=== PATIENT | male | born 1940 | race Caucasian/White ===

== ENCOUNTER 2024-07-24 04:47 | Emergency (ER) | payer MEDICARE, SELFPAY ==
[2024-07-24] VITALS (13 sets, daily range): BP systolic 104–225; BP diastolic 57–107; PULSE 69–72; RESP 14–16; TEMP 36.8; O2SAT 97–98; BMI 21.1; BMI 26.6
--- NOTE | 2024-07-24 05:00 | CT_ITS ---
PROCEDURE INFORMATION: Exam: CT Head Without Contrast Exam date and time: 07/24/2024 5:02 AM Age: 83 years old Clinical indication: Stroke-like symptoms; Speech disturbance; Lt upper extremity weakness; Additional info: Possible stroke TECHNIQUE: Imaging protocol: Computed tomography of the head without contrast. Radiation optimization: All CT scans at this facility use at least one of these dose optimization techniques: automated exposure control; mA and/or kV adjustment per patient size (includes targeted exams where dose is matched to clinical indication); or iterative reconstruction. Other technique: STROKE PROTOCOL was implemented. COMPARISON: CT HEAD/BRAIN WO CON 07/24/2024 5:02 AM FINDINGS: Brain: The brain demonstrates diffuse volume loss. There is white matter hypodensity most consistent with chronic small vessel ischemic change. There is encephalomalacia in the right occipital lobe consistent with a chronic infarction. Cerebral ventricles: The ventricles and CSF spaces are proportionately enlarged. There is no midline shift. Paranasal sinuses: Visualized sinuses are unremarkable. No fluid levels. Mastoid air cells: Visualized mastoid air cells are well aerated. Bones: No acute fracture. Soft tissues: Unremarkable. IMPRESSION: 1. Atrophy and the sequela of chronic small vessel ischemia. 2. 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 3. No acute intracranial abnormality is demonstrated. ASSESSMENT: ASPECTS ([place] Stroke Program Early CT Score) is 10.
--- NOTE | 2024-07-24 05:00 | CT_ITS ---
PROCEDURE INFORMATION: Exam: CTA Head With Contrast, Arteriography Exam date and time: 07/24/2024 5:04 AM Age: 83 years old Clinical indication: Stroke-like symptoms; Speech disturbance; Lt upper extremity weakness; Additional info: Possible stroke TECHNIQUE: Imaging protocol: Computed tomographic angiography of the head with contrast. Exam focused on the arteries. 3D rendering (Not supervised by radiologist): MIP and/or 3D reconstructed images were created by the technologist. Radiation optimization: All CT scans at this facility use at least one of these dose optimization techniques: automated exposure control; mA and/or kV adjustment per patient size (includes targeted exams where dose is matched to clinical indication); or iterative reconstruction. Contrast material: ISOVUE; Contrast volume: 80 ml; Contrast route: INTRAVENOUS (IV); COMPARISON: CT HEAD/BRAIN WO CON 07/24/2024 5:02 AM FINDINGS: ANTERIOR CIRCULATION: Right internal carotid artery: There is atherosclerotic disease involving the right cavernous ICA without narrowing. Right middle cerebral artery: No occlusion or significant stenosis. No aneurysm. Right anterior cerebral artery: No occlusion or significant stenosis. No aneurysm. Left internal carotid artery: There is decrease in size and enhancement of the left petrous and cavernous ICA. Left middle cerebral artery: No occlusion or significant stenosis. No aneurysm. Left anterior cerebral artery: No occlusion or significant stenosis. No aneurysm. POSTERIOR CIRCULATION: Right vertebral artery: There is some atherosclerotic disease involving the intradural segment of the right vertebral artery with mild narrowing. Left vertebral artery: There is atherosclerotic the intradural segment of the left vertebral artery with mild narrowing. Basilar artery: No occlusion or significant stenosis. No aneurysm. Right posterior cerebral artery: No occlusion or significant stenosis. No aneurysm. Left posterior cerebral artery: No occlusion or significant stenosis. No aneurysm. Brain: No abnormal enhancement. Cerebral ventricles: The ventricles and CSF spaces are prominent related generalized volume loss. Bones/joints: No acute fracture. Soft tissues: Unremarkable. IMPRESSION: 1. The left petrous and cavernous ICA is smaller than right and demonstrates decreased enhancement consistent with a severe left cervical ICA stenosis. 2. An emergent neurovascular consultation is recommended.
--- NOTE | 2024-07-24 05:00 | CT_ITS ---
PROCEDURE INFORMATION: Exam: CTA Neck With Contrast Exam date and time: 07/24/2024 5:04 AM Age: 83 years old Clinical indication: Stroke-like symptoms; Speech disturbance; Lt upper extremity weakness; Additional info: Possible stroke TECHNIQUE: Imaging protocol: Computed tomographic angiography of the neck with contrast. Exam focused on the cervical segments of the vasculature. 3D rendering (Not supervised by radiologist): MIP and/or 3D reconstructed images were created by the technologist. Radiation optimization: All CT scans at this facility use at least one of these dose optimization techniques: automated exposure control; mA and/or kV adjustment per patient size (includes targeted exams where dose is matched to clinical indication); or iterative reconstruction. Contrast material: ISOVUE; Contrast volume: 80 ml; Contrast route: INTRAVENOUS (IV); COMPARISON: CT HEAD/BRAIN WO CON 07/24/2024 5:02 AM FINDINGS: Right common carotid artery: No stenosis. No dissection or occlusion. Right internal carotid artery: There is heavy atherosclerotic disease at the origin of the right ICA without narrowing. Right external carotid artery: No occlusion or stenosis of the origin. Left common carotid artery: No stenosis. No dissection or occlusion. Left internal carotid artery: There is heavy atherosclerotic disease at the origin of the left ICA with a severe stenosis somewhat limited assessment due to the calcified plaque. The left cervical ICA is smaller than the right and demonstrates decreased vascular flow within consistent with the flow limiting narrowing. Left external carotid artery: No occlusion or stenosis of the origin. Right vertebral artery: No stenosis. No dissection or occlusion. Left vertebral artery: No stenosis. No dissection or occlusion. Thyroid: There is a 1.3 cm calcified right thyroid nodule. Soft tissues: Normal. No significant soft tissue swelling. Bones/joints: There are degenerative changes throughout the cervical spine. Lungs: There is mild centrilobular emphysematous change in the lung apices. There is a 4 mm noncalcified left upper lobe pulmonary nodule (series 2, image 19). IMPRESSION: 1. Severe stenosis origin left ICA. Reduced flow in the cervical segment. 2. An emergent neurovascular consultation is recommended. 3. 4 mm noncalcified left apical pulmonary nodule. As per Fleischner Society guidelines for follow-up and management of pulmonary nodules: For patients at low risk (minimal or absent history of smoking and of other known risk factors), no follow-up needed. For patient at high risk (history of smoking or of other known risk factors), recommend follow-up chest CT at 12 months; if unchanged, no further follow-up needed. COMMENTS: Consistent with the [employer] [employer]'s Incidental Findings Committee white paper (J Am Charles Radiol 2015): In patients aged 35 years and older with an incidental thyroid nodule equal to or greater than 1.[address], MRI or extrathyroidal US, further evaluation with dedicated thyroid US is recommended for patients with normal life expectancy and without comorbidities. For smaller nodules without suspicious features, no further evaluation or follow up is recommended. REFERENCES: NASCET CRITERIA. The degree of stenosis in the cervical segment of the internal carotid artery is based on NASCET criteria. Normal is no stenosis. Mild is less than 50% stenosis. Moderate is 50-69% stenosis. Severe is 70% to 99% stenosis. Total occlusion is no detectable patent lumen.
[2024-07-24 05:07] LABS: Basophils # 0.1 K/mm3 (0-0.2); Basophils % 0.8 % (0.1-2.0); Eosinophils # 0.1 K/mm3 (0.0-0.4); Hematocrit 49.7 % (42.0-52.0); Hemoglobin 17.6 g/dL (14.1-18.0); Lymphocytes # 2.1 K/mm3 (0.7-4.5); Lymphocytes % 22.3 % (10-50); Mean Corpuscular HGB Conc 35.4 g/dL (31.8-35.4); Mean Corpuscular Hemoglobin 30.4 pg (27.0-31.2); Mean Corpuscular Volume 85.8 fl (80-94); Mean Platelet Volume 9.8 fl (7.4-10.4); Monocytes # 0.6 K/mm3 (0.1-1.0); Monocytes % 6.6 % (1.7-9.3); Neutrophils # 6.4 K/mm3 (1.8-7.8); Neutrophils % 69.1 % (37.0-80.0); Platelet Count 278 K/mm3 (142-424); Red Blood Count 5.79 M/mm3 (4.60-6.20); Red Cell Distribution Width 12.2 % (11.5-17.5); White Blood Count 9.2 K/mm3 (4.8-10.8)
[2024-07-24] MEDS: IOPAMIDOL-370 (76%);100ML BOTTLE 80 ML IV (05:13)
[2024-07-24] MEDS: 0.9 % SODIUM CHLORIDE 50 ML VIAL IV (05:13)
[2024-07-24] MEDS: SODIUM CHLORIDE 0.9% 10ML SYR (RAD ONLY) 10 ML IV (05:13)
[2024-07-24] MEDS: LABETALOL 20MG/4ML SYRINGE 10 MG IV (05:15)
[2024-07-24 05:16] LABS: Alanine Aminotransferase 58 U/L (12-78); Albumin Level 4.3 g/dl (3.5-5.0); Albumin/Globulin Ratio 2.2 (1.1-1.8); Alkaline Phosphatase 66 U/L (38-126); Anion Gap 10.9 mEq/L (5-15); Aspartate Amino Transferase 47 U/L (17-59); Bilirubin,Total 3.1 mg/dl (0.2-1.3); Blood Urea Nitrogen 10 mg/dl (9-20); Calcium 9.3 mg/dl (8.4-10.2); Carbon Dioxide 32 mmol/L (22.0-30.0); Chloride 95 mmol/L (98-107); Chol/HDL Ratio 2.6 (1-3.5); Cholesterol 149 mg/dl (140-200); Creatinine Clearance Estimated 58 mL/min (50-200); Estimated Glomerular Filt Rate 93 ml/min (>60); GFR (African American) 112 ML/MIN (>60); Glucose 167 mg/dl (74-100); HDL Cholesterol 57 mg/dl (40-60); Sodium 135 mmol/L (136-145); Total Protein,Serum 6.3 g/dl (6.3-8.2); Triglycerides 138 mg/dl (30-150); VLDL Cholesterol 28 mg/dL (0-40)
--- NOTE | 2024-07-24 05:16 | ECG_ITS ---
APPROVED REPORT Exam: Resting ECG HR:55 bpm ECG Measurements Heart Rate 55 AXES QRSd 97 QRS 51 QT 365 T 60 QTc 354 Conclusion ATRIAL FIBRILLATION WITH SLOW VENTRICULAR RESPONSE WITH ABERRANT CONDUCTION OR VENTRICULAR PREMATURE COMPLEXES NONSPECIFIC T-WAVE ABNORMALITY ABNORMAL RHYTHM ECG No STEMI Electronically signed by : KYLIE HONEYCUTT, 07/25/2024 06:24:57
[2024-07-24 05:17] LABS: Activated Partial Thrombo Time 26.6 seconds (22.8-30.6); Ethyl Alcohol < 10 mg/dl (0-10); INR 1.19 (0.9-1.1); Prothrombin Time 13.1 seconds (10.1-12.5)
[2024-07-24 05:18] LABS: Potassium 2.9 mmoL/L (3.5-5.1)
--- NOTE | 2024-07-24 05:21 | XR_ITS ---
PROCEDURE INFORMATION: Exam: XR Pelvis Exam date and time: 07/24/2024 5:24 AM Age: 83 years old Clinical indication: Injury or trauma; Fall TECHNIQUE: Imaging protocol: Radiologic exam of the pelvis. Views: 1 or 2 view. COMPARISON: No relevant prior studies available. FINDINGS: Bones/joints: There is moderate loss of articular cartilage in the hips bilaterally. There is no fracture demonstrated, contrast in the bladder obscures the sacrum. Soft tissues: Unremarkable. Organs: There is contrast seen in the right ureter and bladder consistent with the recent IV injection. IMPRESSION: No acute pelvic fracture demonstrated.
--- NOTE | 2024-07-24 05:21 | XR_ITS ---
PROCEDURE INFORMATION: Exam: XR Chest Exam date and time: 07/24/2024 5:24 AM Age: 83 years old Clinical indication: Injury or trauma; Fall TECHNIQUE: Imaging protocol: Radiologic exam of the chest. Views: 1 view. COMPARISON: CT ANGIO NECK 07/24/2024 5:04 AM FINDINGS: Lungs: No consolidation. Pleural spaces: No pleural effusion. No pneumothorax. Heart/Mediastinum: There is a partially calcified left AP window lymph node. Vasculature: The aorta is slightly tortuous. Bones/joints: There are degenerative changes of the spine and shoulders. IMPRESSION: 1. No evidence of active pulmonary disease. 2. A followup PA and lateral radiograph is recommended when the patient is clinically able.
--- NOTE | 2024-07-24 05:23 | ED_ITS ---
Discharge Plan Disposition Patient Disposition: Xfer Other Prescriptions Prescriptions: No Action glyburide 2.5 mg tablet 2.5 mg PO DAILY memantine 10 mg tablet 10 mg PO BID rosuvastatin 10 mg tablet 10 mg PO DAILY donepezil 23 mg Tablet 23 mg PO DAILY Clinical Impressions Clinical Impression: Acute ischemic stroke Dementia Qualifiers: Dementia type: unspecified type Dementia severity: unspecified severity Stand Alone Forms Stand Alone Forms: Transfer Record - ED Print Language Print Language: Cypriot Discharge ED Provider: Eleazar Simons Adult HPI General Chief complaint: Neuro Symptoms/Deficit Stated complaint: Stroke Time Seen by Provider: 07/24/24 04:50 Mode of Arrival: EMS Source of Information: Spouse and EMS Description of Symptoms (Recalled from ER Triage Doc. by RN): Pt presents as a stroke alert, made after recieving EMS call. EMS reports pt last known normal approx 2-3 hours ago noticed per when patient attempted to get up and go to restroom with difficulty walking and speaking. Pt did suffer GLF with no blood thinner use. Pt taken directly to CT scan upon arrival to ED History of Present Illness HPI narrative: 83-year-old male with history of severe dementia, kop-heeyuwk-pnkvugajt diabetes, hyperlipidemia presents for strokelike symptoms. Last known normal 2:20 AM. At approximately 330 patient was noted by his to be having difficulty using his left hand to open the door and then he fell over. She reports that his speech is slurred and that he has some facial asymmetry. He has significant baseline dementia and does not recognize the people around him. He is normally able to get up walk around eat and go to the bathroom by himself. Yesterday he did not want to get out of bed but he was otherwise normal. No history of stroke, no blood thinner use, no recent surgery. Related Data Home Medications ?Medication ?Instructions ?Recorded ?Confirmed donepezil 23 mg tablet 23 mg PO DAILY 07/24/24 07/24/24 glyburide 2.5 mg tablet 2.5 mg PO DAILY 07/24/24 07/24/24 memantine 10 mg tablet 10 mg PO BID 07/24/24 07/24/24 rosuvastatin 10 mg tablet 10 mg PO DAILY 07/24/24 07/24/24 Allergies Allergy/AdvReac Type Severity Reaction Status Date / Time No Known Allergies Allergy Verified 07/24/24 04:58 [facility] Disclaimer: The information contained in this section may have been updated after the patient was seen, as this information can be updated by other users. Social History Smoking Status: Former smoker alcohol intake: never current occupational status: retired Travel in the last 8 weeks: None ROS Obtained: Yes All systems reviewed & no additional complaints except as documented Physical Exam General General appearance: alert and in no apparent distress Comment: Thin appearing Head Head exam: atraumatic and normocephalic Eye Eye exam: Present normal appearance, PERRL and EOMI ENT ENT exam: Present normal oropharynx and normal external ear exam Neck Neck exam: Present normal inspection and full ROM Chest Chest inspection: Present normal inspection and symmetric chest wall rise; Absent tenderness Respiratory Respiratory exam: Present normal lung sounds bilaterally; Absent respiratory distress Cardiovascular Cardiovascular exam: Present normal rhythm and bradycardia Abdominal Exam Abdominal exam: Present soft; Absent distention, tenderness or guarding Extremities Exam Extremities exam: Present normal inspection; Absent edema or joint swelling Back Exam Back exam: Present normal inspection; Absent tenderness Neurological Exam Neurological exam: Present alert and motor sensory deficit (NIH 11, left facial droop, left arm weakness, left arm ataxia, left leg weakness); Absent oriented X3 (Oriented only to person, this is normal for patient) Psychiatric Psychiatric exam: Present normal affect and normal mood Skin Skin exam: Present warm, dry and normal color Lymphatic Lymphatic Findings: no adenopathy Medical Decision Making Medical Records Medical records reviewed: Yes I reviewed the patient's medical records. Screening: Per USPSTF and CDC recommendations, given the prevalence of disease in our region, it is our hospital?s policy to screen for HIV and viral Hepatitis for all patients aged 18 and over and those with ongoing risk factors. Garfield Inquiry Pt receiving controlled substance: No Garfield was queried for this patient: No Vital Signs: 07/24/24 05:02 07/24/24 05:16 07/24/24 05:18 Pulse Rate [Radial] 69 Respiratory Rate 14 Blood Pressure 225/106 H 184/92 H Blood Pressure [Left Arm] 223/107 H Blood Pressure Mean Blood Pressure Mean [Left Arm] 145 Blood Pressure Position [Left Arm] Supine 02 Sat by Pulse Oximetry 97 Oxygen Delivery Method Room Air 07/24/24 05:30 07/24/24 05:45 Pulse Rate [Radial] Respiratory Rate Blood Pressure 207/101 H 215/105 H Blood Pressure [Left Arm] Blood Pressure Mean 115 121 Blood Pressure Mean [Left Arm] Blood Pressure Position [Left Arm] 02 Sat by Pulse Oximetry Oxygen Delivery Method Lab Data Lab results reviewed: Yes I reviewed the patient's lab results. Lab Results 07/24/24 04:57: WBC 9.2, RBC 5.79, Hgb 17.6, Hct 49.7, MCV 85.8, MCH 30.4, MCHC 35.4, RDW 12.2, Plt Count 278, MPV 9.8, Neut % (Auto) 69.1, Lymph % (Auto) 22.3, Banner % (Auto) 6.6, Eos % (Auto) 1.0, Baso % (Auto) 0.8, Neut # (Auto) 6.4, Lymph # (Auto) 2.1, Banner # (Auto) 0.6, Eos # (Auto) 0.1, Baso # (Auto) 0.1, PT 13.1 H, INR 1.19 H, APTT 26.6, Sodium 135 L, Potassium 2.9 L*, Chloride 95 L, Carbon Dioxide 32 H, Anion Gap 10.9, BUN 10, Creatinine 0.80, Estimated Creat Clear 58, Estimated GFR 93, Est GFR ( Amer) 112, Glucose 167 H, Calcium 9.3, Total Bilirubin 3.1 H, AST 47, ALT 58, Alkaline Phosphatase 66, Troponin I 0.02, Total Protein 6.3, Albumin 4.3, Globulin 2.0, Albumin/Globulin Ratio 2.2 H, Triglycerides 138, Cholesterol 149, LDL Cholesterol Direct 65.26 L, VLDL Cholesterol 28, HDL Cholesterol 57, Cholesterol/HDL Ratio 2.6, Plasma/Serum Alcohol < 10 07/24/24 05:46: Urine Color Yellow, Urine Appearance Clear, Urine pH 7.5, Ur Specific [place] 1.015, Urine Protein Negative, Urine Glucose (UA) Negative, Urine Ketones Trace, Urine Blood Trace-i, Urine Nitrate Negative, Urine Bilirubin Negative, Urine Urobilinogen 0.2, Ur Leukocyte Esterase Negative, Urine RBC None, Urine WBC None, Ur Squamous Epith Cells Occasional, Urine Opiates Screen Negative, Urine Methadone Screen Negative, Ur Barbituates Screen Negative, Ur Phencyclidine Scrn Negative, Ur Amphetamines Screen Negative, U Benzodiazepines Scrn Negative, Urine Cocaine Screen Negative, U Marijuana (THC) Screen Negative 07/24/24 04:57 07/24/24 04:57 Orders (Tests/Meds): ED MEDICATIONS Generic Name Dose Route Start Last Admin Trade Name Hawa PRN Reason Stop Dose Admin Sodium Chloride 10 ml 07/24/24 05:00 Sodium Chloride 0.9% 10ml Flush Syringe IV 08/23/24 04:59 NEEDED PRN Maintain IV Site Discontinued Medications Generic Name Dose Route Start Last Admin Trade Name Hawa PRN Reason Stop Dose Admin Hydralazine HCl 10 mg 07/24/24 05:57 07/24/24 06:01 Hydralazine 20mg/Ml Vial IV 07/24/24 05:58 10 mg ONCE ONE Administration Iopamidol 80 ml 07/24/24 05:12 07/24/24 05:13 Iopamidol-370 (76%);100ml Bottle IV 07/24/24 05:13 80 ml ONCE ONE Administration Labetalol HCl 10 mg 07/24/24 05:11 07/24/24 05:15 Labetalol 20mg/4ml Syringe IV 07/24/24 05:12 10 mg ONCE ONE Administration Sodium Chloride 50 ml 07/24/24 05:12 07/24/24 05:13 0.9 % Sodium Chloride 50 Ml Vial IV 07/24/24 05:13 50 ml ONCE ONE Administration Sodium Chloride 10 ml 07/24/24 05:12 07/24/24 05:13 Sodium Chloride 0.9% 10ml Syr (Rad Only) IV 07/24/24 05:13 10 ml ONCE ONE Administration Tenecteplase 17.5 mg 07/24/24 05:24 07/24/24 05:37 Tenecteplase 50mg Vial IV 07/24/24 05:25 17.5 mg ONCE ONE Administration ORDERS Category Date Time Status CT angio head Stat Cat Scan 07/24/24 05:[address] angio neck Stat Cat Scan 07/24/24 05:[address] head/brain wo con Stat Cat Scan 07/24/24 05:00 Completed CXR --portable [XR chest portable] Stat Exams 07/24/24 05:21 Completed Pelvis XR 1-2 views [XR pelvis 1-2V] Stat Exams 07/24/24 05:21 Completed Activated Partial Thrombo Time Stat Lab 07/24/24 04:57 Completed Complete Blood Count Auto Diff Stat Lab 07/24/24 04:57 Completed Comprehensive Metabolic Panel Stat Lab 07/24/24 04:57 Completed Drug Screen,Urine Stat Lab 07/24/24 05:46 Completed Ethyl Alcohol Stat Lab 07/24/24 04:57 Completed HIV Combo Routine Lab 07/24/24 04:57 Received Lipid Panel Stat Lab 07/24/24 04:57 Completed Prothrombin Time INR Stat Lab 07/24/24 04:57 Completed Troponin I Q3H Lab 07/24/24 08:00 Ordered Troponin I Q3H Lab 07/24/24 11:00 Ordered Troponin I Stat Lab 07/24/24 04:57 Completed Urinalysis and Microscopic Stat Lab 07/24/24 05:46 Completed ECG Request Stat Y 07/24/24 05:00 Ordered Medical Decision Narrative: 83-year-old male with history of significant dementia, jum-dwefdtr-nsntnjgnv diabetes, hyperlipidemia presents for acute strokelike symptoms with left-sided facial droop, slurred speech, left upper extremity weakness and ataxia, left leg weakness. Last known normal 2:20 AM, sustained a fall at approximately 3:30 AM. History was obtained via interactive discussion with patient, EMS, . On arrival, patient is afebrile, hypertensive, fingerstick normal, NIH of 11 for slurred speech, left facial droop, left upper and lower extremity weakness, left arm ataxia Differential includes but is not limited to acute ischemic stroke, hemorrhagic stroke, large vessel occlusion, seizure, syncope, electrolyte derangement, diabetic emergency. Workup initiated including emergent CT head, CTA head and neck, broad-spectrum labs, radiograph of the chest and pelvis after fall. On my independent interpretation, no evidence of intracranial bleeding on CT head Noncon. There is severe left ICA stenosis noted on CTA, no obvious LVO.. I discussed the case with the patient's . Discussed the risk and benefits of TNK. wants to proceed with TNK and transfer to stroke center. Patient was given 10 of IV labetalol to bring blood pressure less than 185/110. After that, TNK was given. Laboratory workup independently interpreted by me and significant for mild hypokalemia 2.9, undetectable initial troponin, no significant leukocytosis or anemia. Imaging independently interpreted by me and significant for no pneumothorax or obvious pelvic fracture on radiographs. See radiology read for full review of final results. EKG independently interpreted by me and significant for sinus bradycardia with rate of 59, no obvious ischemic changes, no evidence of arrhythmia. Given patient history, exam and workup, patient's presentation most likely represents acute ischemic stroke. Interactive discussion was had with the [facility] stroke navigator who accepted the patient in transfer. We will fly the patient out to [facility]. Procedures Risk/Benefits of Procedure(s) Were Explained: Yes Critical Care Critical Care Time Critical Care Time: Yes (neuro) Attestation: On , the high probability of a clinically significant, sudden or life threatening deterioration of the following system(s) required my full and direct attention, intervention and personal management. The time I documented below is in addition to time spent performing reported procedures but includes the following listed in this critical care notation. Total Time Total Critical Care Time: 70
--- NOTE | 2024-07-24 05:26 | PC.NURSE ---
0450Pt arrived to the ed via EMS Speech slurred Pt to CT scan IV established by EMS in right AC BS 186 L arm weakness noted Last Known well at 0220 BP 211/91 97% Sao2 on RA P-63 0500 BP 204/117 Sao2 97% P-67 0503 BP-204/114 97% on RA P-63 %15 Pt given 10mg Labatool IV push BP- 225/106 P-65 R- 16 T-98.2 Sao2 98 % on RA 0518 BP 184/92 HR 54
[2024-07-24 05:27] LABS: Direct LDL Cholesterol 65.26 mg/dL (100-129)
[2024-07-24 05:30] LABS: Troponin I 0.02 ng/ml (0.00-0.034)
--- NOTE | 2024-07-24 05:33 | PC.NURSE ---
Spoke with [facility] in regards to the stroke navigator, Dr. Simons speaking with the stroke navigator at this time
[2024-07-24] MEDS: TENECTEPLASE 50MG VIAL 17.5 MG IV (05:37)
--- NOTE | 2024-07-24 05:44 | ECG_ITS ---
APPROVED REPORT Exam: Resting ECG HR:59 bpm ECG Measurements Heart Rate 59 AXES IN 189 P -77 QRSd 94 QRS 46 QT 382 T 83 QTc 381 Conclusion ECTOPIC ATRIAL BRADYCARDIA NONSPECIFIC T-WAVE ABNORMALITY ABNORMAL RHYTHM ECG Electronically signed by : KYLIE HONEYCUTT, 07/25/2024 06:25:35
--- NOTE | 2024-07-24 05:45 | PC.NURSE ---
18fr chapa catheter placed an anchored prior to TNK
--- NOTE | 2024-07-24 05:47 | PC.NURSE ---
[facility] called and accepted the transfer. 38 minute ETA. House notified at this time
--- NOTE | 2024-07-24 05:48 | PC.NURSE ---
states patient has dementia at baseline andrade [facility] claudette
[2024-07-24 05:52] LABS: Microscopic, Urine URINE MICROSCOPIC (MICROSCOPIC)
[2024-07-24 05:53] LABS: Appearance,Urine CLEAR (Clear); Bilirubin,Urine Negative (Negative); Blood, Urine TRACE-I (Negative); Color,Urine YELLOW (Yellow); Glucose,Urine (UA) Negative (Negative); Ketones,Urine TRACE (Negative); Leukocyte Esterase,Urine Negative (Negative); Nitrate,Urine Negative (Negative); PH,Urine 7.5 (5.0-8.5); Protein,Urine Negative (Negative); Specific Gravity, Urine 1.015 (1.005-1.030); Urobilinogen,Urine 0.2 EU/dl (0.2)
--- NOTE | 2024-07-24 05:57 | PC.NURSE ---
Pt awaiting transport ETA [facility] 20 min
[2024-07-24] MEDS: HYDRALAZINE 20MG/ML VIAL 10 MG IV (06:01)
[2024-07-24 06:21] LABS: Amphetamine/Metha Screen,Urine Negative ng/ml (<1000)
[2024-07-24 06:22] LABS: Barbiturates Screen,Urine Negative ng/ml (<200); Benzodiazepines Screen,Urine Negative ng/ml (<200)
[2024-07-24 06:23] LABS: Cannabinoid Screen,Urine Negative ng/ml (<50)
[2024-07-24 06:24] LABS: Cocaine Screen,Urine Negative ng/ml (<300); Methadone Screen,Urine Negative ng/ml (<300)
[2024-07-24 06:25] LABS: Opiate Screen,Urine Negative ng/ml (<300)
[2024-07-24 06:26] LABS: Phencyclidine Screen,Urine Negative ng/ml (<25); Squamous Epithelial Cell,Urine Occasional #/hpf (0-5)
--- NOTE | 2024-07-24 06:30 | PC.NURSE ---
[facility] called back with the report number at this time. bed assignment will be given after report has been called.
--- NOTE | 2024-07-24 06:33 | PC.NURSE ---
[facility] called and stated it would be 10 mins.
--- NOTE | 2024-07-24 06:39 | PC.NURSE ---
Report called to [facility] at [facility] aware of low BP Fluid bolus ordered and begun
--- NOTE | 2024-07-24 07:10 | PC.NURSE ---
Pt transported via air to [facility].
[2024-07-24 12:13] LABS: HIV Combo NEGATIVE (Negative)
== END 2024-07-24 07:18 | disposition other institution (70) ==
PROVIDERS: Emergency Provider Emergency Medicine; PCP Emergency Medicine
DX: I63.9 Cerebral infarction, unspecified (principal)
CPT/HCPCS: 51702; 70450; 70496; 70498; 71045; 72170; 80053; 80061; 80307; 80320; 81001; 84484; 85025; 85610; 85730; 87389; 93005; 96374; 96375; 99285; J0360; J1920; J3101; Q9967

== ENCOUNTER 2024-10-08 03:44 | Emergency (ER) | payer MEDICARE, SELFPAY ==
[2024-10-08] VITALS (7 sets, daily range): BP systolic 153–180; BP diastolic 70–106; PULSE 60–89; RESP 16–18; TEMP 36.6; O2SAT 92–100; BMI 22.8
--- NOTE | 2024-10-08 03:39 | ECG_ITS ---
APPROVED REPORT Exam: Resting ECG HR:67 bpm ECG Measurements Heart Rate 67 AXES QRSd 114 QRS 55 QT 342 T 139 QTc 358 Conclusion ATRIAL FIBRILLATION MODERATE INTRAVENTRICULAR CONDUCTION DELAY [110+ ms QRS DURATION] NONSPECIFIC ST & T-WAVE ABNORMALITY No STEMI Electronically signed by : KYLIE HONEYCUTT, 10/09/2024 03:53:15
--- NOTE | 2024-10-08 03:43 | XR_ITS ---
PROCEDURE INFORMATION: Exam: XR Chest Exam date and time: 10/08/2024 4:34 AM Age: 84 years old Clinical indication: Injury or trauma; Fall; Additional info: Fall no complaints TECHNIQUE: Imaging protocol: Radiologic exam of the chest. Views: 1 view. COMPARISON: CR XR CHEST PORTABLE 07/24/2024 5:24 AM FINDINGS: Lungs: Calcified hilar lymph nodes. Pleural spaces: Unremarkable. No pleural effusion. No pneumothorax. Heart/Mediastinum: Unremarkable. No cardiomegaly. Vasculature: Robust atherosclerotic disease. Bones/joints: Demineralized bones. Diffuse degenerative change of the visualized osseous structures. IMPRESSION: No acute findings.
--- NOTE | 2024-10-08 03:43 | CT_ITS ---
PROCEDURE INFORMATION: Exam: CT Cervical Spine Without Contrast Exam date and time: 10/08/2024 4:50 AM Age: 84 years old Clinical indication: Injury or trauma; Additional info: Fall no c-spine pain TECHNIQUE: Imaging protocol: Computed tomography of the cervical spine without contrast. Radiation optimization: All CT scans at this facility use at least one of these dose optimization techniques: automated exposure control; mA and/or kV adjustment per patient size (includes targeted exams where dose is matched to clinical indication); or iterative reconstruction. COMPARISON: CT CERVICAL SPINE WO CON 10/08/2024 4:50 AM FINDINGS: Bones: Degenerative changes of the visualized osseous structures. Severe neural foraminal narrowing bilaterally at C4-C5, C5-C6. No significant spinal canal stenosis. Bones are demineralized. Degenerative pannus at C2. Lungs: Lung apices are normal. Thyroid: Stable right thyroid lobe calcified nodule. Soft tissues: Robust atherosclerotic disease better detailed on the same-day CTA of the neck. IMPRESSION: Degenerative changes without acute finding as highlighted above.
--- NOTE | 2024-10-08 03:43 | XR_ITS ---
PROCEDURE INFORMATION: Exam: XR Pelvis Exam date and time: 10/08/2024 4:34 AM Age: 84 years old Clinical indication: Injury or trauma; Fall; Additional info: Fall no complaints TECHNIQUE: Imaging protocol: Radiologic exam of the pelvis. Views: 1 or 2 view. COMPARISON: CR XR PELVIS 1-2V 07/24/2024 5:24 AM FINDINGS: Bones/joints: Fracture through the mid left femoral neck, superior displacement of the distal fracture component. Degenerative changes of the remainder of the visualized articulations to include the lower spine. Demineralized bones diffusely. Soft tissues: Unremarkable. Intraperitoneal space: Large round calcification is noted over the superior left midline pelvis, noted to be fat infarction on the cross-sectional evaluation. IMPRESSION: Fracture through the mid femoral neck with superior displacement of the distal fracture component.
--- NOTE | 2024-10-08 03:43 | CT_ITS ---
PROCEDURE INFORMATION: Exam: CT Head Without Contrast Exam date and time: 10/08/2024 4:47 AM Age: 84 years old Clinical indication: Stroke-like symptoms; Speech disturbance; Additional info: Fall on thinners TECHNIQUE: Imaging protocol: Computed tomography of the head without contrast. Radiation optimization: All CT scans at this facility use at least one of these dose optimization techniques: automated exposure control; mA and/or kV adjustment per patient size (includes targeted exams where dose is matched to clinical indication); or iterative reconstruction. Other technique: STROKE PROTOCOL was implemented. COMPARISON: CT ANGIO HEAD 07/24/2024 5:04 AM FINDINGS: Brain: Diffuse parenchymal atrophy. Encephalomalacia noted the medial inferior right occipital lobe. Robust intracranial calcified atherosclerotic disease. Diffuse periventricular and subcortical white matter hypoattenuation, nonspecific, however likely represents chronic microvascular disease. Cerebral ventricles: Ex vacuo dilation of the ventricles and CSF spaces. Paranasal sinuses: Visualized sinuses are unremarkable. No fluid levels. Mastoid air cells: Visualized mastoid air cells are well aerated. Bones: Unremarkable. No acute fracture. Soft tissues: Unremarkable. IMPRESSION: No acute intracranial findings. ASSESSMENT: ASPECTS (Ward Stroke Program Early CT Score) is 10.
--- NOTE | 2024-10-08 03:44 | HMH.EDGENADL ---
Discharge Plan Disposition Patient Disposition: Xfer Short-Term Hosp Condition: Fair Prescriptions Prescriptions: No Action glyburide 2.5 mg tablet 2.5 mg PO DAILY memantine 10 mg tablet 10 mg PO BID rosuvastatin 10 mg tablet 10 mg PO DAILY donepezil 23 mg Tablet 23 mg PO DAILY Referrals Follow up/Referrals: Alan Melvin MD [Primary Care Provider, Medical] - See instructions Clinical Impressions Clinical Impression: Dementia, Fall, Closed fracture of neck of left femur, Urinary tract infection Stand Alone Forms Stand Alone Forms: Transfer Record - ED Print Language Print Language: Faroese Discharge ED Provider: Anel Miguel General Adult HPI General Chief complaint: Fall Stated complaint: Fall Time Seen by Provider: 10/08/24 03:45 History of Present Illness HPI narrative: 84-year-old male presents to the ER by EMS after ground-level fall. states she heard a thud in the bedroom and went to check on him and found him next to the bed sitting on the floor. Unclear if he struck his head. No known loss of consciousness. Patient does take blood thinners reportedly. reportedly called EMS because when she first found him on the floor he would not answer her questions, however by the time EMS arrived patient was completely at his neurologic baseline. He does have a history of advanced dementia. Patient is oriented to his name and birthday but otherwise disoriented which is reportedly baseline. He will follow commands. EMS reports he was hypertensive in route and had blood glucose of 152. No medications administered. presented to bedside after initial evaluation and provided additional, different history. She is very difficult to obtain a history from herself, however. She is not very clear about what is or is not the patient's baseline. She states he usually knows his name and birthdate, but otherwise is not oriented. When I asked what was different tonight, she stated well his speech! And she was very difficult to get to clarify this further. She reports his speech is garbled though it seems fairly clear to me. She reports he is mumbling between the clear words when he is trying to explain something which is reportedly not normal for him. She also states that while his walking is different and again was difficult to get to clarify, but after further questioning states after he fell he would not walk with her or EMS. She is an extremely poor historian but ultimately states she does not know if he potentially had another stroke. She was finally able to clarify for me that his last known normal was around 8:30 PM last night, over 7 hours ago. No recent illness. She reports she is his primary radiographer cardiac catheterization. Related Data Home Medications ?Medication ?Instructions ?Recorded ?Confirmed donepezil 23 mg tablet 23 mg PO DAILY 07/24/24 07/24/24 glyburide 2.5 mg tablet 2.5 mg PO DAILY 07/24/24 07/24/24 memantine 10 mg tablet 10 mg PO BID 07/24/24 07/24/24 rosuvastatin 10 mg tablet 10 mg PO DAILY 07/24/24 07/24/24 Allergies Allergy/AdvReac Type Severity Reaction Status Date / Time No Known Allergies Allergy Verified 07/24/24 04:58 [facility] Disclaimer: The information contained in this section may have been updated after the patient was seen, as this information can be updated by other users. Social History (Updated 07/24/24 @ 06:30 by Eleazar Simons MD) Smoking Status: Unknown if ever smoked alcohol intake: never current occupational status: retired Travel in the last 8 weeks?: None Have you lived/traveled outside [place] in past 30 days?: No Contact w/someone who lives/traveled outside US past 30 days?: No Exposure to someone with infectious disease in past 14 days?: No Do you have a fever (greater than 100.4 F or 38 C)?: No Have you tested positive for COVID-19?: No Exposed to someone with COVID-19 in past 14 days?: No Do you have a sore throat?: No Do you have a cough?: No Do you have any weakness?: No Do you have any diarrhea?: No Are you experiencing any unusual bleeding?: No Do you have any muscle aches/pain?: No Do you have any abdominal pain?: No Are you experiencing loss of taste or smell?: No ROS Obtained: Yes unobtainable due to mental condition (advanced dementia) Physical Exam General General appearance: alert and in no apparent distress Head Head exam: atraumatic and normocephalic Eye Eye exam: Present PERRL and EOMI ENT ENT exam: Present mucous membranes moist Neck Neck exam: Present normal inspection and full ROM; Absent tenderness Chest Chest inspection: Present symmetric chest wall rise Respiratory Respiratory exam: Present normal lung sounds bilaterally; Absent respiratory distress, wheezes or stridor Cardiovascular Cardiovascular exam: Present regular rate and normal rhythm Abdominal Exam Abdominal exam: Present soft; Absent distention or tenderness Extremities Exam Extremities exam: Present full ROM; Absent edema Neurological Exam Neurological exam: Present alert and CN II-XII intact (No facial droop, no aphasia); Absent oriented X3 (Oriented to self and to his birthday, otherwise disoriented) or motor sensory deficit (Patient struggles to follow complex commands due to advanced dementia but has equal strength in all extremities and reports no sensory deficits.) Psychiatric Psychiatric exam: Present normal affect and normal mood Skin Skin exam: Present warm and dry Medical Decision Making Medical Records Medical records reviewed: Yes I reviewed the patient's medical records. Screening: Per USPSTF and CDC recommendations, given the prevalence of disease in our region, it is our hospital?s policy to screen for HIV and viral Hepatitis for all patients aged 18 and over and those with ongoing risk factors. MR Comment: Patient was evaluated in this ER in July of this year for strokelike symptoms. Patient was transferred to [facility] with stroke after receiving TNK. [place] Inquiry Pt receiving controlled substance: No Vital Signs: 10/08/24 03:43 10/08/24 03:54 10/08/24 04:05 Temperature 97.9 F Temperature Source Oral Pulse Rate 63 70 Pulse Rate [Right Radial] 82 Respiratory Rate 18 Blood Pressure 173/89 H 158/81 H Blood Pressure [Left Arm] 180/106 H Blood Pressure Mean [Left Arm] 130 Blood Pressure Source Automatic Cuff Blood Pressure Source [Left Arm] Automatic Cuff Blood Pressure Position [Left Arm] Supine 02 Sat by Pulse Oximetry 92 L 97 98 Oxygen Delivery Method Room Air Room Air 10/08/24 05:11 10/08/24 05:30 10/08/24 05:49 Temperature Temperature Source Pulse Rate 60 64 65 Pulse Rate [Right Radial] Respiratory Rate 18 Blood Pressure 153/70 H 168/83 H 158/80 H Blood Pressure [Left Arm] Blood Pressure Mean [Left Arm] Blood Pressure Source Blood Pressure Source [Left Arm] Blood Pressure Position [Left Arm] 02 Sat by Pulse Oximetry 100 100 100 Oxygen Delivery Method Lab Data Lab Results 10/08/24 04:05: WBC 13.3 H, RBC 4.95, Hgb 15.7, Hct 43.9, MCV 88.7, MCH 31.7 H, MCHC 35.8 H, RDW 12.3, Plt Count 248, MPV 9.8, Neut % (Auto) 78.9, Lymph % (Auto) 11.5, Mathews % (Auto) 8.1, Eos % (Auto) 0.4, Baso % (Auto) 0.6, Neut # (Auto) 10.5 H, Lymph # (Auto) 1.5, Mathews # (Auto) 1.1 H, Eos # (Auto) 0.1, Baso # (Auto) 0.1, PT 11.7, INR 1.06, Sodium 136, Potassium 3.9, Chloride 97 L, Carbon Dioxide 33 H, Anion Gap 9.9, BUN 10, Creatinine 0.80, Estimated Creat Clear 54, Estimated GFR 92, Est GFR ( Amer) 112, Glucose 163 H, Calcium 8.9, Total Bilirubin 3.4 H, AST 47, ALT 31, Alkaline Phosphatase 66, Troponin I 0.02, Total Protein 6.6, Albumin 4.1, Globulin 2.5, Albumin/Globulin Ratio 1.6 10/08/24 04:16: Urine Color Yellow, Urine Appearance Sl cloudy, Urine pH 7.0, Ur Specific [place] 1.010, Urine Protein Trace, Urine Glucose (UA) Negative, Urine Ketones Negative, Urine Blood 2+ A, Urine Nitrate Negative, Urine Bilirubin Negative, Urine Urobilinogen 1.0, Ur Leukocyte Esterase 3+ A, Urine RBC Tntc, Urine WBC Tntc, Urine Bacteria 4+, Urine Opiates Screen Negative, Urine Methadone Screen Negative, Ur Barbituates Screen Negative, Ur Phencyclidine Scrn Negative, Ur Amphetamines Screen Negative, U Benzodiazepines Scrn Negative, Urine Cocaine Screen Negative, U Marijuana (THC) Screen Negative 10/08/24 04:05 10/08/24 04:05 Orders (Tests/Meds): ED MEDICATIONS Generic Name Dose Route Start Last Admin Trade Name Freq PRN Reason Stop Dose Admin Sodium Chloride 10 ml 10/08/24 04:44 Sodium Chloride 0.9% 10ml Vial IV 11/07/24 04:43 NEEDED PRN to Dilute Lorazepam inj Discontinued Medications Generic Name Dose Route Start Last Admin Trade Name Freq PRN Reason Stop Dose Admin Acetaminophen 1,000 mg 10/08/24 04:52 10/08/24 05:22 Acetaminophen 1,000mg/100ml Vial IV 10/08/24 04:53 1,000 mg ONCE ONE Administration Ceftriaxone Sodium 2 gm/ 100 mls @ 200 mls/hr 10/08/24 04:30 10/08/24 05:21 Sodium Chloride IV 10/08/24 04:59 200 mls/hr ONCE ONE Administration Sodium Chloride 500 mls @ 500 mls/hr 10/08/24 04:45 10/08/24 05:22 Sod Chlor 0.9% 1000ml Bag IV 10/08/24 05:44 500 mls/hr .Q1H ONE Administration Iopamidol 155 ml 10/08/24 05:19 10/08/24 05:20 Iopamidol-370 (76%);100ml Bottle IV 10/08/24 05:20 155 ml ONCE ONE Administration Lorazepam 0.5 mg 10/08/24 04:44 10/08/24 04:49 Lorazepam 2mg/Ml Vial IV 10/08/24 04:45 0.5 mg ONCE ONE Administration Morphine Sulfate 2 mg 10/08/24 05:44 10/08/24 05:47 Morphine 2mg/Ml Syringe IV 10/08/24 05:45 2 mg ONCE ONE Administration Sodium Chloride 50 ml 10/08/24 05:19 10/08/24 05:20 0.9 % Sodium Chloride 50 Ml Vial IV 10/08/24 05:20 50 ml ONCE ONE Administration Sodium Chloride 10 ml 10/08/24 05:19 10/08/24 05:20 Sodium Chloride 0.9% 10ml Syr (Rad Only) IV 10/08/24 05:20 10 ml ONCE ONE Administration ORDERS Category Date Time Status CT abdomen pelvis w con Stat Cat Scan 10/08/24 04:[address] angio head Stat Cat Scan 10/08/24 03:[address] angio neck Stat Cat Scan 10/08/24 03:[address] bony pelvis Stat Cat Scan 10/08/24 04:[address] cervical spine wo con Stat Cat Scan 10/08/24 03:[address] chest w con Stat Cat Scan 10/08/24 04:[address] head/brain wo con Stat Cat Scan 10/08/24 03:43 Completed CXR --portable [XR chest portable] Stat Exams 10/08/24 03:43 Completed POCUS Point of Care (ER Only) Stat Exams 10/08/24 03:56 Completed XR pelvis 1-2V Stat Exams 10/08/24 03:43 Completed CBC w/Auto Diff [Complete Blood Count Auto Diff] Stat Lab 10/08/24 04:05 Completed CMP [Comprehensive Metabolic Panel] Stat Lab 10/08/24 04:05 Completed PT INR [Prothrombin Time INR] Stat Lab 10/08/24 04:05 Completed Troponin I Q3H Lab 10/08/24 07:30 Ordered Troponin I Q3H Lab 10/08/24 10:30 Ordered Troponin I Stat Lab 10/08/24 04:05 Completed UDS [Drug Screen,Urine] Stat Lab 10/08/24 04:16 Completed Urinalysis and Microscopic Stat Lab 10/08/24 04:16 Completed Blood Culture Stat Micro 10/08/24 05:17 Received Urine Culture Stat Micro 10/08/24 04:16 Received Medical Decision Narrative: In summary, this 84-year-old male with comorbidities including advanced dementia, hyperlipidemia, [id number]-[id number] diabetes, previous CVA presents to the emergency department today with EMS after fall. On initial evaluation patient is hemodynamically stable, afebrile, GCS 14 with confusion which is reportedly at baseline given patient's history of dementia, airway patent, bilateral breath sounds present, 2+ radial pulse, no external findings of trauma, no areas of tenderness or swelling, though patient is difficult to get a neuroexam on, he does not report any numbness and has equal strength in all extremities. No facial droop. Pelvis stable, no tenderness of the neck, back, chest wall, abdomen, or any other area. No evidence of trauma to the head. Differential diagnosis includes but is not limited to intracranial bleed, midline shift, C-spine injury cannot be ruled out secondary to patient's age and dementia, also considered a much lower likelihood but still possible intrathoracic injury such as pneumothorax or hemothorax, also considered though much less suspicion for possible pelvic fracture, pelvis is stable. Range of motion of all extremities is full and pain-free so I do not suspect extremity injury. I performed [id number] ultrasound of bedside, E-FAST is negative. See procedure note for details. Ruling out the most morbid conditions drove my assessment so initially CT head and C-spine as well as chest and pelvis x-ray were ordered. After patient's presented to bedside and provided the additional history as documented in the HPI, I did consider the possibility of stroke though patient is not within the window for stroke alert with last known normal approximately 7 hours prior to arrival. While I can understand the patient's speech perfectly fine, she is concerned about mumbling in between comments that he makes, due to his advanced dementia it is difficult to assess an NIH, he does not have any weakness in the arms or legs, he does not understand the directions for finger-nose or [id number] or visual acuity testing, but he fully tracks my finger. He does not understand instructions to interpret images. I do not appreciate aphasia. thought the patient has some facial droop however on testing he does not have any facial palsy or droop. With this additional information I did consider the possibility of metabolic abnormality including electrolyte abnormality, kidney dysfunction, urinary tract infection, and recrudescence of previous stroke since his previous stroke did include speech difficulties. ECG personally interpreted demonstrates sinus rhythm with occasional PAC, rate 75, normal axis, normal CO and QTc, no STEMI. No medications initially administered in the ER. Labs personally reviewed demonstrate mild leukocytosis WBC 13.3, no anemia, normal platelets, UA significantly positive for findings of infection including too numerous to count WBCs and RBCs with 4+ bacteria. With this finding, we are collecting blood cultures and patient is being treated with Rocephin. He will also receive IV fluids. XR personally interpreted when performed by radiology demonstrates left hip fracture. With this finding, additional imaging was added to workup to ensure no other acute traumatic injury in the intrathoracic or intra-abdominal cavities though I have lower suspicion for them, patient is not demonstrating any pain in the left hip, so I am suspicious he could be hiding other injuries as well. Patient was mildly agitated in CT and could not follow commands to hold still so very small dose of IV Ativan was administered. IV Tylenol also administered. CT imaging personally interpreted demonstrate no acute intracranial bleed, mass, or midline shift, CT bony pelvis with left hip fracture, CT C-spine without acute osseous injury. See radiology reads for full interpretations. I received phone call from the reading radiologist regarding the CTA head and neck, he reports to me that the patient has severe stenosis of the left ICA but there is distal reconstitution and he does not appreciate large vessel occlusion or evidence of ischemia. See radiology reads for full interpretations. C-collar removed by me since patient was not demonstrating any neurodeficits and has negative CT imaging. The c-collar was also agitating him further. I did give small dose of morphine for pain management despite patient not expressing any pain at this time due to the left hip fracture. CT chest, abdomen, pelvis do not demonstrate acute traumatic injuries. See radiology reads. Orthopedics is not available at this facility at this time so patient will require transfer to higher level of care for management of hip fracture as well as continued management of urinary tract infection. is agreeable to this. I reach out to [facility] and discussed this case with Dr. Aldridge. We discussed patient's presentation to the ER, 's concerns, findings on exam, findings on imaging, lab results, treatment in the ER. I also discussed with her that I believe social work may need to see this family because I am very concerned the does not have capacity to continue caring for this patient. She is extremely difficult to get a history from and does not demonstrate good insight into his current or past medical conditions. She requires significant repetition to understand current circumstances and still repeats questions, now that the patient has had a fall with a significant injury I have increased concerns that she may not be able to care for him at home. Dr. Aldridge was grateful for this additional information and she graciously accepted this patient for ED to ED transfer to [facility]. Patient will go via ALS ambulance for continued cardiac monitoring. Patient was reassessed immediately prior to transfer. He remains a GCS 14, hemodynamically stable, neurovascularly intact throughout. He has tolerated interventions in the ER well. He was transferred in stable condition. Procedures Miscellaneous Procedure Procedure Performed: E-FAST ultrasound Indication: Ground-level fall Views: [LUQ/RUQ/pelvis/limited cardiac/limited thoracic] Interpretation: Peritoneal free fluid: Absent Pericardial effusion: Absent Right thoracic free fluid: Absent Left thoracic free fluid: Absent Right lung pneumothorax: Absent Left lung pneumothorax: Absent Impression: Negative EFAST ultrasound Images were saved in the permanent archive. The study was technically adequate. CPT 83890-06 (limited cardiac) 88324?26 (limited abdominal) 00455?26 (chest) This study was performed by me, and I personally interpreted all images/videos. Based on my clinical judgment, these images were adequate and did not necessitate further imaging. Critical Care Critical Care Time Critical Care Time: Yes Attestation: On 10/08/24, the high probability of a clinically significant, sudden or life threatening deterioration of the following system(s) required my full and direct attention, intervention and personal management. The time I documented below is in addition to time spent performing reported procedures but includes the following listed in this critical care notation. Total Time Total Critical Care Time: 35
--- NOTE | 2024-10-08 03:53 | CT_ITS ---
PROCEDURE INFORMATION: Exam: CTA Head With Contrast, Arteriography Exam date and time: 10/08/2024 5:00 AM Age: 84 years old Clinical indication: Stroke-like symptoms; Speech disturbance; Additional info: Fall, reportedly garbled speech according to TECHNIQUE: Imaging protocol: Computed tomographic angiography of the head with contrast. Exam focused on the arteries. 3D rendering (Not supervised by radiologist): MIP and/or 3D reconstructed images were created by the technologist. Radiation optimization: All CT scans at this facility use at least one of these dose optimization techniques: automated exposure control; mA and/or kV adjustment per patient size (includes targeted exams where dose is matched to clinical indication); or iterative reconstruction. Contrast material: ISOVUE; Contrast volume: 80 ml; Contrast route: INTRAVENOUS (IV); COMPARISON: CT ANGIO HEAD 07/24/2024 5:04 AM FINDINGS: ANTERIOR CIRCULATION: Right internal carotid artery: Right internal carotid artery demonstrates calcified and noncalcified atherosclerotic disease throughout with about 25% stenosis noted of the supraclinoid aspects of the vessel. Right middle cerebral artery: No occlusion or significant stenosis. No aneurysm. Right anterior cerebral artery: No occlusion or significant stenosis. No aneurysm. Left internal carotid artery: Of the left internal carotid artery demonstrates diminutive appearance throughout its entirety. Robust calcified atherosclerotic disease is noted at the lacerum segment causing greater than 75% focal narrowing. Robust calcified and noncalcified atherosclerotic disease extends throughout the cavernous segment causing up to 50% stenosis. Robust calcified atherosclerotic disease of the clinoid segment causes 50-75% stenosis. Left middle cerebral artery: No occlusion or significant stenosis. No aneurysm. Left anterior cerebral artery: No occlusion or significant stenosis. No aneurysm. POSTERIOR CIRCULATION: Right vertebral artery: Diminutive right vertebral artery. Atherosclerotic disease of the V4 segment of the right vertebral artery causing 25-50% stenosis. Left vertebral artery: Calcified atherosclerotic disease of the V4 segment of the left vertebral artery causing at least 50% stenosis. Basilar artery: No occlusion or significant stenosis. No aneurysm. Right posterior cerebral artery: No occlusion or significant stenosis. No aneurysm. Left posterior cerebral artery: No occlusion or significant stenosis. No aneurysm. IMPRESSION: Atherosclerotic disease as above without complete occlusion.
--- NOTE | 2024-10-08 03:53 | CT_ITS ---
PROCEDURE INFORMATION: Exam: CTA Neck With Contrast Exam date and time: 10/08/2024 5:00 AM Age: 84 years old Clinical indication: Stroke-like symptoms; Speech disturbance; Additional info: Fall, reportedly garbled speech according to TECHNIQUE: Imaging protocol: Computed tomographic angiography of the neck with contrast. Exam focused on the cervical segments of the vasculature. 3D rendering (Not supervised by radiologist): MIP and/or 3D reconstructed images were created by the technologist. Radiation optimization: All CT scans at this facility use at least one of these dose optimization techniques: automated exposure control; mA and/or kV adjustment per patient size (includes targeted exams where dose is matched to clinical indication); or iterative reconstruction. Contrast material: ISOVUE; Contrast volume: 80 ml; Contrast route: INTRAVENOUS (IV); COMPARISON: CT ANGIO NECK 07/24/2024 5:04 AM FINDINGS: Right common carotid artery: No stenosis. No dissection or occlusion. Right internal carotid artery: Robust atherosclerotic disease of the right carotid bulb extending into the origins of the external carotid artery and internal carotid artery without significant stenosis. Right external carotid artery: No occlusion or stenosis of the origin. Left common carotid artery: No stenosis. No dissection or occlusion. Left internal carotid artery: Robust calcified and noncalcified atherosclerotic disease of the origin of the left internal carotid artery with 99% stenosis, however there is distal reconstitution of the vessel. Left external carotid artery: No occlusion or stenosis of the origin. Right vertebral artery: No stenosis. No dissection or occlusion. Left vertebral artery: No stenosis. No dissection or occlusion. Aorta: Diffuse calcified and noncalcified atherosclerotic disease of the visualized aorta extending into the proximal major branches without significant stenosis. Thyroid: Stable calcified right thyroid nodule. Soft tissues: Normal. No significant soft tissue swelling. Bones/joints: Degenerative changes of the visualized osseous structures. Bones appear slightly demineralized. Lungs: Atelectasis/scarring of the superior segment of the right lower lobe. 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 REFERENCES: NASCET CRITERIA. The degree of stenosis in the cervical segment of the internal carotid artery is based on NASCET criteria. Normal is no stenosis. Mild is less than 50% stenosis. Moderate is 50-69% stenosis. Severe is 70% to 99% stenosis. Total occlusion is no detectable patent lumen.
--- OUTSIDE RECORDS SUMMARY | 2024-10-08 03:56 | XMS_ITS | Data Portability ---
Author Organization [place] - [place] - [facility] & GIANLUCA Woodard ADMIN Address [address] [place] [id number] Care Team Providers Care Concrete Truck Driver Name Role Phone ALAN LAGUNA Primary Care Provider [phone] Assessment Encounter Date Assessment Date Assessment LastModified by Organization Details LastModified Time 07/11/2023 07/11/2023 Evaluation and examination. Reviewed PMH. Discussed podiatric pathology including treatment options with the patient at length. Reviewed referring provider's notes. Not available 07/11/2023 12:37:14 10/17/2023 10/17/2023 Evaluation and examination. Discussed podiatric pathology including treatment options with the patient and his . Not available 10/17/2023 12:25:46 02/06/2024 02/06/2024 Evaluation and examination. Discussed podiatric pathology including treatment options with the patient and his . [email or web address] Not available 02/06/2024 09:55:09 08/26/2024 08/26/2024 We have spent 30 minutes in visit discussing patient's options. I have offered to refer them to an adult daycare center to help get patient out of the house. Family wants to go with home health for right now. [email or web address] Not available 08/26/2024 11:50:12 Plan of Treatment Reminders Order Date Submit Date Provider Last Modified By Organization Details Last Modified Time Details Appointments None recorded. Lab None recorded. Referral None recorded. Procedures None recorded. Surgeries None recorded. Imaging None recorded. Medication Orders clotrimazol e 1 % topical solution 2023 024 robert [facility], [address] [place], [address], 10:46:19 terbinafine HCl 250 mg tablet 2023 024 [email or web address] [facility], [address] [place], [address], 10:30:45 Patient TargetsNo targets recorded. Patient Instructions Encounter Date Encounter Id Patient Instructions Last Modified By Organization Details Last Modified Time 07/11/2023 [id number] diabetes foot health: care instructions Not available 07/11/2023 12:48:06 02/06/2024 [id number] diabetes foot health: care instructions Not available 02/06/2024 16:16:24 Reason for Referral None Reported. Results Created Date Observation Date Name Description Value Unit Range Abnormal Flag Note LastModifiedBy Organization Detail LastModifiedTime 06/25/19 24 06/25/2023 CBC AUTO W DIFF WBC 5.9 10 4.5-11 .5 Not Available [facility] (Lab Registration) [address], [place], [address], 06/25/2023 13:52:43 06/25/19 24 06/25/2023 CBC AUTO W DIFF RBC 5.18 10 4.25-5 .57 Not Available [facility] (Lab Registration) [address] [place], [address], 06/25/2023 13:52:43 06/25/19 24 06/25/2023 CBC AUTO W DIFF HGB 15.3 g/dL 13.5-1 7.2 Not Available [facility] (Lab Registration) [address] [place], [address], 06/25/2023 13:52:43 06/25/19 24 06/25/2023 CBC AUTO W DIFF HCT 46.8 % 42.0-5 2.0 Not Available [facility] (Lab Registration) [address] [place], [address], 06/25/2023 13:52:43 06/25/19 24 06/25/2023 CBC AUTO W DIFF MCV 90.3 fL 80-95 Not Available [facility] (Lab Registration) [address] [place], [address], 06/25/2023 13:52:43 06/25/19 24 06/25/2023 CBC AUTO W DIFF MCH 29.5 pg 27.0-3 4.0 Not Available [facility] (Lab Registration) [address] [place], [address], 06/25/2023 13:52:43 06/25/19 24 06/25/2023 CBC AUTO W DIFF MCHC 32.7 g/dL 32.0-3 6.0 Not Available [facility] (Lab Registration) [address] [place], [address], 06/25/2023 13:52:43 06/25/19 24 06/25/2023 CBC AUTO W DIFF platelet count 277 10 150-45 0 Not Available [facility] (Lab Registration) [address] [place], [address], 06/25/2023 13:52:43 06/25/19 24 06/25/2023 CBC AUTO W DIFF RDW 13.5 % 12.3-1 5.1 Not Available [facility] (Lab Registration) [address] [place], [address], 06/25/2023 13:52:43 06/25/19 24 06/25/2023 CBC AUTO W DIFF MPV 9.6 fL 7.4-10 .4 Not Available [facility] (Lab Registration) [address] [place], [address], 06/25/2023 13:52:43 06/25/19 24 06/25/2023 CBC AUTO W DIFF granulocyte% 60.8 % 40-75 Not Available [facility] (Lab Registration) [address] [place], [address], 06/25/2023 13:52:43 06/25/19 24 06/25/2023 CBC AUTO W DIFF lymphocyte% 28.3 % 15-57 Not Available [facility] (Lab Registration) [address], [place], [address], 06/25/2023 13:52:43 06/25/19 24 06/25/2023 CBC AUTO W DIFF monocyte% 8.6 % 4.0-12 .0 Not Available [facility] (Lab Registration) [address] [place], [address], 06/25/2023 13:52:43 06/25/19 24 06/25/2023 CBC AUTO W DIFF eosinophil% 1.2 % 0.0-4. 0 Not Available [facility] (Lab Registration) [address] [place], [address], 06/25/2023 13:52:43 06/25/19 24 06/25/2023 CBC AUTO W DIFF basophil% 0.8 % 0.0-1. 0 Not Available [facility] (Lab Registration) [address] [place], [address], 06/25/2023 13:52:43 06/25/19 24 06/25/2023 CBC AUTO W DIFF immature granulocytes % 0.3 % 0.0-0. 8 Not Available [facility] (Lab Registration) [address] [place], [address], 06/25/2023 13:52:43 06/25/19 24 06/25/2023 CBC AUTO W DIFF granulocyte# 3.60 10 Not Available [facility] (Lab Registration) [address] [place], [address], 06/25/2023 13:52:43 06/25/19 24 06/25/2023 CBC AUTO W DIFF lymphocyte# 1.68 10 Not Available [facility] (Lab Registration) [address] [place], [address], 06/25/2023 13:52:43 06/25/19 24 06/25/2023 CBC AUTO W DIFF monocyte# 0.51 10 Not Available [facility] (Lab Registration) [address] [place], [address], 06/25/2023 13:52:43 06/25/19 24 06/25/2023 CBC AUTO W DIFF eosinophil# 0.07 10 Not Available [facility] (Lab Registration) [address] [place], [address], 06/25/2023 13:52:43 06/25/19 24 06/25/2023 CBC AUTO W DIFF basophil# 0.05 10 Not Available [facility] (Lab Registration) [address] [place], [address], 06/25/2023 13:52:43 06/25/19 24 06/25/2023 CBC AUTO W DIFF immature granulocytes # 0.02 10 Not Available [facility] (Lab Registration) [address] [place], [address], 06/25/2023 13:52:43 06/25/19 24 06/25/2023 CBC AUTO W DIFF manual differential NO Not Available [facility] (Lab Registration) [address] [place], [address], 06/25/2023 13:52:43 06/25/19 24 06/25/2023 CBC AUTO W DIFF note Unles s other morales noted testi ng perfo rmed at: [facility] [address] [place] [address] [phone] Walter coffey MD CLIA: [id number] Not Available [facility] (Lab Registration) [address] [place], [address], 06/25/2023 13:52:43 06/25/19 24 06/25/2023 HEMOG LOBIN A1C glycosylated hemoglobin A1C 6.1 % 4.5-6. 2 Not Available [facility] (Lab Registration) [address] [place], [address], 06/25/2023 13:56:19 06/25/19 24 06/25/2023 HEMOG LOBIN A1C estimated average glucose 128 mg/dL 82-131 Not Available [facility] (Lab Registration) [address], [place], [address], 06/25/2023 13:56:19 06/25/19 24 06/25/2023 HEMOG LOBIN A1C note Unles s other morales noted testi ng perfo rmed at: [facility] [address] [facility] [place] [address] [phone] Walter coffey MD CLIA: [id number] Not Available [facility] (Lab Registration) [address] [place], [address], 06/25/2023 13:56:19 06/25/19 24 06/25/2023 COMP METAB OLIC PANEL sodium 140 mmol/ L 136-14 5 Not Available [facility] (Lab Registration) [address] [place], [address], 06/25/2023 13:57:24 06/25/19 24 06/25/2023 COMP METAB OLIC PANEL potassium 4.0 mmol/ L 3.5-5. 1 Not Available [facility] (Lab Registration) [address] [place], [address], 06/25/2023 13:57:24 06/25/19 24 06/25/2023 COMP METAB OLIC PANEL chloride 104 mmol/ L 98-107 Not Available [facility] (Lab Registration) [address] [place], [address], 06/25/2023 13:57:24 06/25/19 24 06/25/2023 COMP METAB OLIC PANEL carbon dioxide 27 mmol/ L 21-32 Not Available [facility] (Lab Registration) [address] [place], [address], 06/25/2023 13:57:24 06/25/19 24 06/25/2023 COMP METAB OLIC PANEL anion gap 9.0 Not Available [facility] (Lab Registration) [address] [place], [address], 06/25/2023 13:57:24 06/25/19 24 06/25/2023 COMP METAB OLIC PANEL glucose 171 mg/dL 70-110 high Not Available [facility] (Lab Registration) [address] [place], [address], 06/25/2023 13:57:24 06/25/19 24 06/25/2023 COMP METAB OLIC PANEL blood urea nitrogen 9 mg/dL 7-18 Not Available [facility] (Lab Registration) [address] [place], [address], 06/25/2023 13:57:24 06/25/19 24 06/25/2023 COMP METAB OLIC PANEL creatinine 0.9 mg/dL 0.8-1. 3 Not Available [facility] (Lab Registration) [address] [place], [address], 06/25/2023 13:57:24 06/25/19 24 06/25/2023 COMP METAB OLIC PANEL BUN/creatini ne ratio 10.0 ratio 9-21 Not Available [facility] (Lab Registration) [address] [place], [address], 06/25/2023 13:57:24 06/25/19 24 06/25/2023 COMP METAB OLIC PANEL estimated glom filtration rate 86 mL/mi n >60- Not Available [facility] (Lab Registration) [address] [place], [address], 06/25/2023 13:57:24 06/25/19 24 06/25/2023 COMP METAB OLIC PANEL total protein 6.5 g/dL 6.4-8. 2 Not Available [facility] (Lab Registration) [address] [place], [address], 06/25/2023 13:57:24 06/25/19 24 06/25/2023 COMP METAB OLIC PANEL albumin 3.5 g/dL 3.4-5. 0 Not Available [facility] (Lab Registration) [address] [place], [address], 06/25/2023 13:57:24 06/25/19 24 06/25/2023 COMP METAB OLIC PANEL calcium 9.1 mg/dL 8.5-10 .1 Not Available [facility] (Lab Registration) [address] [place], [address], 06/25/2023 13:57:24 06/25/19 24 06/25/2023 COMP METAB OLIC PANEL corrected calcium 9.5 mg/dL 8.5-10 .1 Not Available [facility] (Lab Registration) [address] [place], [address], 06/25/2023 13:57:24 06/25/19 24 06/25/2023 COMP METAB OLIC PANEL bilirubin total 1.6 mg/dL 0.4-1. 5 high Not Available [facility] (Lab Registration) [address] [place], [address], 06/25/2023 13:57:24 06/25/19 24 06/25/2023 COMP METAB OLIC PANEL AST (SGOT) 23 U/L 15-37 Not Available [facility] (Lab Registration) [address] [place], [address], 06/25/2023 13:57:24 06/25/19 24 06/25/2023 COMP METAB OLIC PANEL ALT (SGPT) 24 U/L 12-78 Not Available [facility] (Lab Registration) [address] [place], [address], 06/25/2023 13:57:24 06/25/19 24 06/25/2023 COMP METAB OLIC PANEL alk phosphatase 75 U/L Not Available [facility] (Lab Registration) [address] [place], [address], 06/25/2023 13:57:24 06/25/19 24 06/25/2023 COMP METAB OLIC PANEL note Unles s other morales noted testi ng perfo rmed at: [facility] [address] [address] [phone] Walter coffey MD CLIA: [id number] Not Available [facility] (Lab Registration) [address], [place], [address], 06/25/2023 13:57:24 06/25/19 24 06/25/2023 LIPID PANEL triglyceride 114 mg/dL 20-200 The Natio nal Jennifer stero l [employer]ca t[employer]gr am (NCEP ) has set the follo wing guide lines for Fasti ng Trigl yceri camille: FINA L: <150 mg/dL BORDE RLINE HIGH: 150 - 199 mg/dL HIGH: 200 - 499 mg/dL VERY HIGH: > or =500 mg/dL Not Available [facility] (Lab Registration) [address], [place], [address], 06/25/2023 13:57:27 06/25/19 24 06/25/2023 LIPID PANEL cholesterol 171 mg/dL 0-200 The [employer]io n[employer]ca t[employer]gr am (NCEP ) has set the follo wing guide lines for Fasti ng Jennifer stero l: MARIN ABLE: <200 mg/dL BORDE RLINE HIGH: 200 - 239 mg/dL HIGH: > or =240 mg/dL Not Available [facility] (Lab Registration) [address], [place], [address], 06/25/2023 13:57:27 06/25/19 24 06/25/2023 LIPID PANEL HDL cholesterol 62 mg/dL 60- The Natio nal [employer]ca t[employer]gr am (NCEP ) has set the follo wing guide lines for Fasti ng HDL Jennifer stero l: LOW HDL: <40 mg/dL FINA L: 40 - 60 mg/dL MARIN ABLE: >60 mg/dL Not Available [facility] (Lab Registration) [address], [place], [address], 06/25/2023 13:57:27 06/25/19 24 06/25/2023 LIPID PANEL LDL calculated 86 mg/dL 100- low The [employer]io n[employer]ca t[employer] Progr am (NCEP ) has set the follo wing guide lines for Fasti ng LDL Jnenifer stero l: OPTIM AL: < 100 mg/dL LOW RISK: 100 - 129 mg/dL BORDE RLINE HIGH: 130 - 159 mg/dL HIGH: 160 - 189 mg/dL VERY HIGH: > or = 190 mg/dL Not Available [facility] (Lab Registration) [address] , [place], [address], 06/25/2023 13:57:27 06/25/19 24 06/25/2023 LIPID PANEL chol/HDL ratio 3 ratio -5 Not Available [facility] (Lab Registration) [address], [place], [address], 06/25/2023 13:57:27 06/25/19 24 06/25/2023 LIPID PANEL note Unles s other morales noted testi ng perfo rmed at: [facility] [address] [place] [address] [phone] Walter coffey MD CLIA: [id number] Not Available [facility] (Lab Registration) [address], [place], [address], 06/25/2023 13:57:27 07/25/19 25 07/24/2024 imagi ng inter preta tion No observ ation record ed. [email or web address] [facility] [address], [place], [address], 07/27/2024 11:23:41 07/26/19 25 07/24/2024 imagi ng inter preta tion No observ ation record ed. [email or web address] [facility] [address], [place], [address], 07/27/2024 11:23:56 07/26/1907/24/2024 imagi ng inter preta tion No observ ation record ed. [email or web address] [facility] [address], [place], [address], 07/27/2024 11:23:51 Result Notes None recorded. Problems Name Problem SNOMED Code Status Onset Date Resolution Date Notes Provider Name and Address Organization Details Recorded Time Hypertensi ve disorder 51760975 Active Not Available [facility] 4 13:24:42 General examinatio n of patient Active Not Available [facility] 4 13:24:42 Poor long-term memory 881691789 Active Not Available [facility] 4 13:24:42 Amnesia 12131934 Active Not Available [facility] 4 13:24:42 Type 2 diabetes mellitus 70069845 Active Not Available [facility] 4 13:24:42 Contact dermatitis caused by plants 725702497 Active [facility] Available 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 7164610437161 9101 Active Not Available [facility] 4 13:24:42 Diabetes mellitus without complicati on 623769213 Active Not Available [facility] 4 13:24:42 Migraine 89275070 Active Not Available [facility] 4 13:24:42 Altered mental status 995035046 Active Not Available [facility] 4 13:24:42 Hyperlipid emia 99655526 Active Not Available [facility] 4 13:24:42 Dementia with behavioral disturbanc e 0807861300720 Active Not Available [facility] 4 13:24:42 Cerebrovas cular accident 250766713 Active Not Available [facility] 4 13:24:42 Severe dementia 1367129335627 05 Active Not Available [facility] 4 13:24:42 Unintentio nal weight loss 677912053 Active 2022 Not Available [facility] 4 13:24:42 Problem Notes None recorded. Procedures Surgical History Date Name Laterality Status Provider Name and Address Organization Details Recorded Time 02/06/20 24 Nail debridement (6-10) completed Joselyn Matson MA - [facility] & [place] 02/06/2024 09:55:09 10/17/19 24 Nail debridement (6-10) completed Verito Sheppard MA - [facility] & [place] 10/17/2023 10:22:56 07/11/19 24 Nail debridement (6-10) completed Melody Maulik MA - [facility] & [place] 07/11/2023 10:39:33 Appendectomy completed Rebecca Brody [facility] & [place] 11/05/2022 12:19:07 Imaging Results None recorded. Procedure Notes None recorded. Medical Equipment None Reported. Allergies No known drug allergies Medications Name Sig Start Date Stop Date Status Note LastModified by Organization Details LastModified Time quetiapine 25 mg tablet Take 0.5 tablets twice a day by oral route. 2024 active Not Available Not Available Not Avai lable metformin 500 mg tablet Take 1 tablet twice a day by oral route. 03/12 completed Not Available Not Available Not Available megestrol 400 mg/10 mL (40 mg/mL) oral suspension Take by oral route for 10 days. 06/24 completed Not Available Not Available Not Available aspirin 325 mg tablet Take 1 {tablet} by oral route. 03/12 completed Not Available Not Available Not Available glyburide 2.5 mg tablet Take 1 tablet every day by oral route. active Not Available Not Available No t Available donepezil 10 mg tablet 02/07 completed Not Available Not Available Not Available amlodipine 5 mg tablet Take 1 tablet every day by oral route as directed. active Not Available Not Available No t Available carvedilol 3.125 mg tablet Take 1 tablet twice a day by oral route as directed. active Not Available Not Available No t Available terbinafine HCl 250 mg tablet Take 1 tablet every day by oral route for 14 days. 06/13 /2024 completed Not Available Not Available Not Available meclizine 25 mg tablet 2 {tablets_ as_needed }s 3 times a day by oral route. 06/24 completed Not Available Not Available Not Available clotrimazol e 1 % topical solution APPLY TO TOENAILS DAILY UNTIL ABNORMAL APPEARANC E RESOLVED 08/26 completed Not Available Not Available Not Available aspirin 81 mg tablet Take 1 tablet every day by oral route as directed. 2024 active Not Available Not Available Not Avai lable megestrol 20 mg tablet TAKE 1 TABLET BY MOUTH TWICE A DAY 08/26 completed Not Available Not Available Not Available clotrimazol e 1 % topical cream 01/20 completed Not Available Not Available Not Available meclizine 25 mg chewable tablet 02/07 completed Not Available Not Available Not Available rosuvastati n 10 mg tablet Take 1 tablet every day by oral route. active Not Available Not Available No t Available memantine 10 mg tablet TAKE 1 TABLET BY MOUTH TWICE DAILY 2024 active Not Available Not Available Not Avai lable donepezil 23 mg tablet Take 1 tablet every day by oral route for 90 days. 2024 active Not Available Not Available Not Avai lable megestrol 400 mg/10 mL (10 mL) oral suspension Take 10 mL every day by oral route. 03/12 completed Not Available Not Available Not Available dimenhydrin ate 50 mg capsule Take by oral route. 06/11 completed Not Available Not Available Not Available Vitals Date Recorded Body height Provider Name an d Address Organization Details Last Updated DateTime 07/11/2023 167.64 cm Melody Willingham [facility] 07/11/2023 10:30:11 Date Recorded Body height Body mass index (BMI) Body weight Body temperature Oxygen saturation Oxygen saturation in Arterial blood by Pulse oximetry Heart rate Respiratory rate Systolic blood pressure Diastolic blood pressure Provider Name and Address Organization Details Last Updated DateTime 167.64 cm 20.9 kg/m2 86581.5 7 g 97.9 [degF] 100 % 100 % 68 /min 16 /min 168 mm[Hg] 84 mm[Hg] Rachel Francine [facility] & [place] 5 10:45:52 Date Recorded Body height Body mass index (BMI) Body weight Body temperature Oxygen saturation Oxygen saturation in Arterial blood by Pulse oximetry Heart rate Respiratory rate Systolic blood pressure Diastolic blood pressure Provider Name and Address Organization Details Last Updated DateTime 4 167.64 cm 23.6 kg/m2 16370.4 9 g 97.1 [degF] 100 % 100 % 61 /min 16 /min 155 mm[Hg] 77 mm[Hg] Rachel Escamilla [place] - [facility] & [place] 4 09:15:46 Social History Question Answer Notes LastModified by Organizat ion Details LastModified Time Tobacco Smoking Status Former Smoker Not Available [facility] 06/25/2023 13:24:42 Do You Have An Advance Directive? Yes CHART_MERGE Information n ot available 06/25/2023 Do You Wear A Helmet When Biking? No Information not available 08/26/2024 Are You Blind Or Do You Have Difficulty Seeing? No CHART_MERGE Information n ot available 06/25/2023 In The 14 Days Before Symptom Onset, Have You Had Close Contact With A Laboratory-confirm ed COVID-19 While That Case Was Ill? No Information n ot available 08/26/2024 In The 14 Days Before Symptom Onset, Have You Had Close Contact With A Person Who Is Under Investigation For COVID-19 While That Person Was Ill? No Information not available 08/26/2024 Have You Been To An Area Known To Be High Risk For COVID-19? No Information not available 08/26/2024 Are You Deaf Or Do You Have Serious Difficulty Hearing? Yes Information not available 08/26/2024 What Type Of Diet Are You Following? REGULAR Information n ot available 08/26/2024 Have You Processed Blood Or Body Fluids From An Ebola Virus Disease Patient Without Appropriate PPE? No Information not available 08/26/2024 Do You Reside In Or Have You Traveled To An Area Where Ebola Virus Transmission Is Active? No Information not available 08/26/2024 Have There Been Any Changes To Your Family Or Social Situation? Yes Information no t available 08/26/2024 What Is The Fluoride Status Of Your Home? Unknown Information not available 08/26/2024 Are There Any Guns Present In Your Home? No Information not available 08/26/2024 Have You Recently Or Are You Planning To Travel To An Area With Zika Virus? No Information not available 08/26/2024 Do You Use Insect Repellent Routinely? Yes Information not available 08/26/2024 Do You Feel Safe At Home? Yes Information not available 08/26/2024 Do You Have A Medical Power Of Poolroom Table Attendant? Yes Information not available 08/26/2024 What Was The Date Of Your Most Recent Tobacco Screening? 08/24/2024 Information not available 08/26/2024 Do You Have Any Pets? No Information not available 08/26/2024 What Is Your Relationship Status? Information not available 08/26/2024 Do You Use Your Seat Belt Or Car Seat Routinely? Yes Information not available 08/26/2024 Are You Sexually Active? No Information not available 08/26/2024 Do You Have Smoke And Carbon Monoxide Detectors In Your Home? Yes Information not available 08/26/2024 Are You Passively Exposed To Smoke? No CHART_MERGE Information no t available 06/25/2023 How Much Tobacco Do You Smoke? No CHART_MERGE Information not available 06/25/2023 Do You Use Sunscreen Routinely? Yes Information not available 08/26/2024 Do You Have Difficulty Walking Or Climbing Stairs? No Information not available 08/26/2024 Are You Currently In School? No Information not available 08/26/2024 Sex: Male Functional Status Question Answer Note LastModified by Organizat ion Details LastModified Time Do you use any illicit or recreational drugs? No CHART_MERGE Information not available 06/25/2023 What is your level of alcohol consumption? None CHART_MERGE Information not available 06/25/2023 Do you or have you ever used smokeless tobacco? Never used smokeless tobacco CHART_MERGE Information not available 06/25/2023 Are you currently employed? No Information not available 08/26/2024 Do you have transportation difficulties? No Information not available 08/26/2024 Are you able to walk? YESWOREST Information not available 08/26/2024 Do you have difficulty doing errands alone? Yes Information not available 08/26/2024 Are you able to care for yourself? Yes Information n ot available 08/26/2024 Do you have difficulty dressing or bathing? Yes Information not available 08/26/2024 What is your exercise level? None CHART_MERGE Information not available 06/25/2023 Mental Status Question Answer Note LastModified by Organizat ion Details LastModified Time Do you feel stressed (tense, restless, nervous, or anxious, or unable to sleep at night)? [id number] Information not available 08/26/2024 Do you have difficulty concentrating, remembering or making decisions? Yes Information no t available 08/26/2024 Family History Relationship Description Onset Age of this Age Resolved Age Notes LastModified by Organization Details LastModified Time Mother Cerebrovascu lar accident pt. added direct ly (02/05) CHART_MERGE Not available 06/25/2023 13:24:40 Father Myocardial infarction pt. added direct ly (02/05) CHART_MERGE Not available 06/25/2023 13:24:40 Medical History Condition Response Emphysema N Depression N Anxiety Disorder N Arthritis N Acid Reflux (GERD) N Cancer N Stroke N Headaches N Fibromyalgia N Kidney Disease N Heart Problems N Heart Conditions N Ear or Hearing Problems Y Migraines N Bleeding Disorder N Tuberculosis N Asthma N Sleep Disorder N GERD/Reflux N Glaucoma N Anesthesia Complications N Hearing Loss N High Cholesterol Y Speech Delay N Allergies/Hayfever N Thyroid Problems N Developmental Delay N Anemia N Immune System Disorder N Heart Attack (TN) N Diabetes Y Hyperlipidemia N Dementia Y Heart Disease N Hypertension Y Immunizations Vaccine Type Date Status Note Provider Nam e and Address Organization Details Recorded Time COVID-19, mRNA, LNP-S, PF, 100 mcg/0.5mL dose or 50 mcg/0.25mL dose 1 completed Not Available [facility] 06/25/2023 13:24:43 COVID-19, mRNA, LNP-S, PF, 100 mcg/0.5mL dose or 50 mcg/0.25mL dose 2 completed Not Available [facility] 06/25/2023 13:24:43 Influenza, split virus, trivalent, preservative 3 completed Not Available [facility] 06/25/2023 13:24:43 COVID-19, mRNA, LNP-S, PF, 100 mcg/0.5mL dose or 50 mcg/0.25mL dose 1 completed Not Available [facility] 06/25/2023 13:24:43 COVID-19, mRNA, LNP-S, PF, 100 mcg/0.5mL dose or 50 mcg/0.25mL dose 1 completed Not Available [facility] 06/25/2023 13:24:43 Influenza, split virus, trivalent, preservative 5 completed Not Available [facility] 06/25/2023 13:24:43 pneumococcal polysaccharide PPV23 5 completed Not Available [facility] 06/25/2023 13:24:43 COVID-19, mRNA, LNP-S, bivalent, PF, 50 mcg/0.5 mL or 25mcg/0.25 mL dose 2 completed Not Available [facility] 06/25/2023 13:24:43 Tdap 8 completed Not Available [facility] 06/25/2023 13:24:43 COVID-19, mRNA, LNP-S, bivalent, PF, 50 mcg/0.5 mL or 25mcg/0.25 mL dose 3 completed Not Available [facility] 06/25/2023 13:24:43 zoster recombinant 3 completed [place] [facility] [place] 12/25/2023 14:44:08 Influenza, high-dose, quadrivalent, PF 3 completed [place] D[place] [facility] [place] 12/25/2023 14:44:08 RSV, recombinant, protein subunit RSVpreF, adjuvant reconstituted, 0.5 mL, PF 3 completed [place] D[place] [facility] [place] 12/25/2023 14:44:08 COVID-19, mRNA, LNP-S, PF, 50 mcg/0.5 mL 3 completed Adilia Feliberto null, [place] - [facility] & [place] 12/25/2023 14:44:08 zoster recombinant 4 completed Lauren Colon null, [place] - [facility] & [place] 06/23/2024 12:50:15 Pneumococcal conjugate PCV20, polysaccharide SHL341 conjugate, adjuvant, PF 4 completed Lauren Colon [place] [facility] [place] 06/23/2024 12:50:16 Past Encounters Encounter ID Performer Location Encounter Start Date Encounter Closed Date Diagnosis/Indication Diagnosis SNOMED-CT Code Diagnosis ICD10 Code Diagnosis Note [id number] Lor Hannon MD [facility] [place] [id number] 02/07/2022 13:58:19 02/07/2022 15:08:28 Severe dementia [id number] 51062 F03.90 Dizziness and giddiness [id number] R42 Patient has not had any dizzy episodes for two months, and patient's has seen an improvemen t with the added dementia medication , I recommend he continue with that regimen and he can see me as needed. [id number] DESTINEY SAGASTUME [facility] [address] [address] 02/07/2022 15:09:52 02/07/2022 15:13:32 Sensorineural hearing loss 74557309 H90.3 [id number] Alan Laguna MD [address] [address] 06/14/2022 14:45:03 06/14/2022 15:30:56 Hyperglycemia 18586945 R73.9 Will check his A1c today. Hypertensive disorder 38 565240 I10 patient continues to take medication . Poor long-term memory 24 5283199 R41.3 Patient to continue with Current medication regimen.. reports improvemen t. Hyperlipidemia 79935347 E78.5 [id number] Alan Laguna MD [address] [place] [id number] 09/11/2022 14:56:39 09/11/2022 15:50:04 Hyperlipidemia 60036382 E78.5 start on rosuvastat in Hyperglycemia 97396330 R 73.9 Will check his A1c today. Dementia w ith behavioral disturbance [id number] 103 F03.911 continue with current mx [id number] Alan Laguna MD [address] [place] [id number] 12/11/2022 14:53:37 12/11/2022 15:45:07 Diabetes mellitus without complication 005467145 E11.9 Patient is unable to tolerate metformin. Will hold the medication until we get results of lab work back. states that he is losing weight and he has lost his appetite. I have advised patient to use ensure/ Glucerna. I will also call in a prescripti on for some Megace. Hyperlipidemia 71903340 E78.5 Awaiting lab work. Hypertensive disorder 38 361163 I10 patient continues to take medication . Dementia w ith behavioral disturbance 0725547920 103 F03.911 continue with current mx [id number] Alan Laguna MD [address] [place] [id number] 03/12/2023 15:04:13 03/12/2023 15:36:57 Type 2 diabetes mellitus 96175778 E11.65 Patient to continue with current medication regimen. Unintentio nal weight loss 043806931 R63.4 has been advised to continue to encourage patient to eat. I have called the pharmacy and they will be getting the prescripti on for Megace. [id number] Alan Laguna MD [address] [place] [id number] 06/25/2023 10:33:33 06/25/2023 11:02:53 Diabetes mellitus without complication 964242866 E11.9 Patient is unable to tolerate metformin. Will hold the medication until we get results of lab work back. states that he is losing weight and he has lost his appetite. I have advised patient to use ensure/ Glucerna. I will also call in a prescripti on for some Megace. Hyperlipidemia 78699013 E78.5 Awaiting lab work. Hypertensive disorder 38 044657 I10 patient continues to take medication . Onychomyco sis of toenails 865045519 B35.1 patient has severe onychomyco sis of both feetpatien t is requesting a referral to Podiatry. [id number] Elisha Garay DPM [facility] [address] [place] [address],[address] [place], [place] [id number] 07/11/2023 09:22:56 07/11/2023 10:51:54 Disorder of nervous system due to type 2 diabetes mellitus 236937447 E11.49 Performed/ updated lower extremity neurovascu lar exams today. Discussed importance of diabetic foot care including controllin g blood sugar, monitoring feet daily, applying moisturize r to feet but not between the toes, appropriat e shoe gear, drying well between the toes after bath, and risks associated with soaking feet. Also discussed importance of routine exercise (recommend daily average of 30 minutes), a balanced diet ( consider supplement ation if diet not adequate), and healthy sleep habits. 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 Onychomycosis 001367910 B35.1 Discussed treatment options at length regarding onychomyco sis involving his/her toenails including routine maintenanc e, over-the-c ounter remedies, nail avulsion procedure, and topical and oral antifungal medication . Discussed risks and potential side effects of each option. I explained noticeable results can take 3 months or longer and complete resolution may take 6 months or longer. Discussed potential drug interactio ns and side effects of oral antifungal including remote risk of liver damage. I explained that recent LFTs would need to be obtained and reviewed prior to starting oral medication and may need to be rechecked during the course of the therapy. verbalizes understand ing.Review ed recent LFTs, WNL. Okay for oral therapy. Pt elects for short course of oral therapy and she will try to apply topical to his nails daily. Tinea pedis 1586817 B35. 3 Abnormal gait 26868311 R 26.89 [id number] Elisha Garay DPM [facility] [address] [place] [address],[address] SAMMALINDA Lance, [place] [id number] 10/17/2023 09:37:28 10/17/2023 12:49:27 Disorder of nervous system due to type 2 diabetes mellitus 495293748 E11.49 Counseled regarding at risk foot care. Onychogryphosis 30508464 L60.2 Debrided toenails in thickness and length. Onychomycosis 927643623 B35.1 Abnormal appearance of nails improving with treatment. Continue topical antifungal until nails completely clear. Discussed potential added benefit of alternatin g with Vicks Vaporub. Tinea pedis 9342400 B35. 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 Diabetes m ellitus without complication 861968635 E11.9 Patient to continue with current regimen. Hyperlipidemia 13137112 E78.5 Patient is taking statin. Will check his labs at his next visit. Hypertensive disorder 38 342802 I10 patient continues to take medication . [id number] Elisha Garay DPM [facility] [address] [place] [address] [place] [id number] 02/06/2024 09:33:17 02/06/2024 10:35:30 Disorder of nervous system due to type 2 diabetes mellitus 764058791 E11.49 Performed/ updated lower extremity neurovascu lar exams today. Discussed importance of diabetic foot care including controllin g blood sugar, monitoring feet daily, applying moisturize r to feet but not between the toes, appropriat e shoe gear, drying well between the toes after bath, and risks associated with soaking feet. Also discussed importance of routine exercise (recommend daily average of 30 minutes), a balanced diet ( consider supplement ation if diet not adequate), and healthy sleep habits. Onychogryphosis 06126891 L60.2 Debrided toenails in thickness and length. Onychomycosis 495586359 B35.1 Abnormal appearance of nails improving with treatment. Continue topical antifungal until nails completely clear. 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 His is concerned that he has no longer eating as much as he was, he is losing weight. Family is also not sure whether or not he is sleeping. History of cerebrovascular accident 258718876 Z86.73 PATIENT IS TO CONTINUE TO FOLLOW-UP WITH NEUROLOGY. Health Concerns Section Related Observation LastModified by Organization Detai ls LastModified Time None Recorded Concern Status LastModified by Organization Details LastModified Time None Recorded Advance Directives Directive Y: Payers Insurance Date Sequence Insurance Name Policy Number Policy Booth Covered Member ID Booth Member ID Guarantor Name 11/23/2023 1 [place]MEDICARE REPLACEMENT REGIONAL PPO) [id number] Hugo Matthews [id number] Hugo Matthews 11/23/2023 2 [place] Hugo Matthews [id number] Hugo Ramírez Matthews 08/23/2024 1 [place]MED[place]ACEMENT [place]IONAL PPO[place] [id number] Hugo Matthews [id number] Hugo Matthews Notes Date Note Type Note Provider Name and Address Organization Details Recorded Time 07/11/2023 text/html Patient presents with his for diabetic foot care ( provides most of patient's history secondary to dementia). Patient reports his toenails are long and in need of a trim and requests assistance with this. Patients admits she has a hard time trimming the toenails because they are so thick.She also admits he has been having issues with athletes foot as well.Patient denies abnormal sensations in his feet from neuropathy. reports he does not complain of pain.New patient referred by his PCP. PCP: Dr. Shepherd PCP visit: 06/25/2023Last reported BS: A1C 6.1% Elisha Garay DPM [address], [address], [place], [address], [facility] [place] 07/11/2023 12:39:38 10/17/2023 text/html Patient presents with his Carmen for diabetic foot care ( provides most of patient's history secondary to dementia). Patient reports his toenails are long and in need of a trim and requests assistance with this. His states she is applying clotrimazole to the nails but she is unsure if they are improving yet. PCP: Dr. Shepherd PCP visit: 06/25/2023Last reported BS: A1C 6.1% Elisha Garay DPM [address], [address], [place], [address], [facility] & [place] 10/17/2023 12:26:08 01/21/2024 text/html Patient presents today for routine follow-up. He denies any new issues. He is present with the spouse. Patient has advanced dementia. She states that he is drinking ensure 3 times a day although he has not eating solids as much as she would like. Patient has gained a lb since his last visit. Patient's states he is stable with his current medication regimen. Alan Laguna MD [address] [place] [address], [phone], [facility] & [place] 01/21/2024 09:56:06 02/06/2024 text/html Patient presents with his Carmen for diabetic foot care ( provides most of patient's history secondary to dementia). Patient reports his toenails are long and in need of a trim and requests assistance with this. They report they are still using the topical antifungal solution but with slow results. PCP: Dr. Shepherd PCP visit: 01/28/24Last reported BS: unsure Elisha Garay DPM [address], [address], [place], [address], [facility] & [place] 02/06/2024 12:12:22 08/26/2024 text/html patient presents today to follow-up on hospital visit admission. Patient was admitted to [facility] in [place] secondary to a history of CVA. Patient has a history of underlying dementia patient was discharged home on amlodipine and carvedilol. Both his and his son present at this visit. Patient has a follow-up appointment with Neurology scheduled for this coming Saturday. Family is concerned that is losing weight. He is also spending all day in bed. Alan Laguna MD [address] [place] [address], [phone], [facility] - [facility] & [place] 08/26/2024 11:50:24
--- OUTSIDE RECORDS SUMMARY | 2024-10-08 03:56 | XMS_ITS ---
Author Organization Unknown Encounters Encounter Type Performer Location Encounter Date Encoun ter Notes virtual Gaby Curtis - [id number]:51:14.000 Z no notes virtual Gaby Omerman - 4517-12-41B06:50:29.000 Z no notes virtual Gaby Kirsten - 3072-54-80Y25:52:36.000 Z no notes virtual Julio Camp - 0413-88-32D70:58:01. 000Z no notes virtual Jocelin Burleson - 1818-26-63P77:25:15.0 00Z no notes virtual Gaby Curtis [id number]:00:00.000 Z no notes virtual Gladis Kim - 4990-45-72X60:07:28.00 0Z no notes virtual Yohana Robledo - 9361-50-24P92:51:30.000Z no notes virtual Gaby Omerman - 1118-88-05L71:33:46.000 Z no notes virtual Gaby Omerman [id number]:00:00.000 Z no notes Patient Care team information Name Category Status Period Participants - - Proposed period not known -
--- OUTSIDE RECORDS SUMMARY | 2024-10-08 03:56 | XMS_ITS | Continuity of Care Document ---
Author Organization [place] - [facility]- [facility] Address [address] [place] [address] Care Team Providers Care Shoe Clerk Name Role Phone ALAN LAGUNA Primary Care Provider Assessment Encounter Date Assessment Date Assessment LastModified by Organization Details LastModified Time 08/26/2024 08/26/2024 We have spent 30 minutes [...] Details Last Modified Time Details Appointments None record ed. Lab None record ed. Referral None record ed. Procedures None record ed. Surgeries None record ed. Imaging None record ed. Medication Orders None record ed. Patient TargetsNo targets recorded. Patient InstructionsNo instructions recorded. Reason for Referral None Reported. Problems Name Problem SNOMED Code Status Onset Date Resolution Date Notes Provider Name and Address Organization Details Recorded Time Hypertensi ve disorder 63296290 Active Not Available [facility] 4 13:24:42 General examinatio n of patient Active Not Available [facility] 4 13:24:42 Poor long-term memory 839722415 Active Not Available [facility] 4 13:24:42 Amnesia 31417583 Active Not Available [facility] 4 13:24:42 Type 2 diabetes mellitus 42511832 Active Not Available [facility] 4 13:24:42 Contact dermatitis caused by plants Active Not Available [facility] 4 13:24:42 Behavioral disturbanc e co-occurre nt and due to late onset Alzheimer dementia 2469703049489 9101 Active Not Available [facility] 4 13:24:42 Diabetes mellitus without complicati on 297111558 Active Not Available [facility] 4 13:24:42 Migraine 95516705 Active Not Available [facility] 4 13:24:42 Altered mental status 837236456 Active Not Available [facility] 4 13:24:42 Hyperlipid emia 95445487 Active Not Available [facility] 4 13:24:42 Dementia with behavioral disturbanc e 9607637776918 Active Not Available [facility] 4 13:24:42 Cerebrovas cular accident 514852326 Active Not Available [facility] 4 13:24:42 Severe dementia 1718918007725 05 Active Not Available [facility] 4 13:24:42 Unintentio nal weight loss 845126620 Active 2022 Not Available [facility] 4 13:24:42 Problem Notes None recorded. Procedures Surgical History Date Name Laterality Status Provider Name and Address Organization Details Recorded Time 02/06/20 24 Nail debridement (6-10) completed Joselyn Matson [facility] & [place] 02/06/2024 09:55:09 10/17/19 24 Nail debridement (6-10) completed Verito Sheppard [place] [facility] 10/17/2023 10:22:56 07/11/19 24 Nail debridement (6-10) completed Melody Willingham [place] [facility] 07/11/2023 10:39:33 Appendectomy completed Rebecca Skinner [place] [facility] & [place] 11/05/2022 12:19:07 Imaging Results None recorded. Procedure [...] day by oral route for 14 days. 10/16 completed Not Available Not Available Not Available [...] Not Available Vitals Date Recorded Body height Body mass index (BMI) Body weight Body temperature Oxygen saturation Oxygen saturation in Arterial blood by Pulse oximetry Heart rate Respiratory rate Systolic blood pressure Diastolic blood pressure Provider Name and Address Organization Details Last Updated DateTime 167.64 cm 20.9 kg/m2 20934.5 7 g 97.9 [degF] 100 % 100 % 68 /min 16 /min 168 mm[Hg] 84 mm[Hg] Rachel Escamilla [facility] & [place] 10:45:52 Social History Question Answer Notes LastModified by Organizat ion Details LastModified Time Tobacco Smoking Status Former Smoker Not Available [facility] 06/25/2023 13:24:42 Do You Have An Advance [...] Do You Have A Medical Power Of Textile Knitter? Yes Information not available 08/26/2024 What Was [...] anxious, or unable to sleep at night)? [id number] Information not available 08/26/2024 Do you have [...] 13:24:40 Medical History Condition Response Emphysema N Glaucoma N Depression N Anesthesia Complications N Anxiety Disorder N Hearing Loss N Arthritis N Acid Reflux (GERD) N Cancer N Stroke N High Cholesterol Y Headaches N Fibromyalgia N Speech Delay N Kidney Disease N Allergies/Hayfever N Heart Problems N Heart Conditions N Ear or Hearing Problems Y Migraines N Thyroid Problems N Developmental Delay N Anemia N Immune System Disorder N Heart Attack (AL) N Diabetes Y Bleeding Disorder N Tuberculosis N Hyperlipidemia N Dementia Y Asthma N Sleep Disorder N GERD/Reflux N Heart Disease N Hypertension Y Immunizations Vaccine Type Date Status Note Provider Nam e and Address Organization Details Recorded Time COVID-19, mRNA, LNP-S, PF, 100 mcg/0.5mL dose or 50 mcg/0.25mL dose 1 completed Not Available [facility] 06/25/2023 13:24:43 COVID-19, mRNA, LNP-S, PF, 100 mcg/0.5mL dose or 50 mcg/0.25mL dose 2 completed Not Available [facility] 06/25/2023 13:24:43 Influenza, split virus, trivalent, preservative 3 completed Not Available [facility] 06/25/2023 13:24:43 COVID-19, mRNA, LNP-S, PF, 100 mcg/0.5mL dose or 50 mcg/0.25mL dose 1 completed Not Available [facility] 06/25/2023 13:24:43 COVID-19, mRNA, LNP-S, PF, 100 mcg/0.5mL dose or 50 mcg/0.25mL dose 1 completed Not Available [facility] 06/25/2023 13:24:43 Influenza, split virus, trivalent, preservative 5 completed Not Available [facility] 06/25/2023 13:24:43 pneumococcal polysaccharide PPV23 5 completed Not Available [facility] 06/25/2023 13:24:43 COVID-19, mRNA, LNP-S, bivalent, PF, 50 mcg/0.5 mL or 25mcg/0.25 mL dose 2 completed Not Available [facility] 06/25/2023 13:24:43 Tdap 8 completed Not Available [facility] 06/25/2023 13:24:43 COVID-19, mRNA, LNP-S, bivalent, PF, 50 mcg/0.5 mL or 25mcg/0.25 mL dose 3 completed Not Available [facility] 06/25/2023 13:24:43 zoster recombinant 3 completed Adilia claire, [place] - [facility] [place] & [place] 12/25/2023 14:44:08 Influenza, high-dose, quadrivalent, PF 3 completed Adilia claire, [place] - [facility] [place] & [place] 12/25/2023 14:44:08 RSV, recombinant, protein subunit RSVpreF, adjuvant reconstituted, 0.5 mL, PF 3 completed Adilia Feliberto null, [place] - [facility] & [place] 12/25/2023 14:44:08 COVID-19, mRNA, LNP-S, PF, 50 mcg/0.5 mL 3 completed Adilia Feliberto null, [place] - [facility] [place] & [place] 12/25/2023 14:44:08 zoster recombinant 4 completed Lauren Colon null, [place] - [facility] [place] & [place] 06/23/2024 12:50:15 Pneumococcal conjugate PCV20, polysaccharide [id number] conjugate, adjuvant, PF 4 completed Lauren Colon null, [place] - [facility] & [place] 06/23/2024 12:50:16 Past Encounters Encounter ID Performer Location Encounter Start Date Encounter Closed Date Diagnosis/Indication Diagnosis SNOMED-CT Code Diagnosis ICD10 Code Diagnosis Note [id number] Alan Laguna MD [facility] [address] [place] [phone] 08/26/2024 10:30:03 08/26/2024 11:26:24 Senile dementia 55094764 F03.90 patient's dementia appears to be progressin g. His is concerned that he has no longer eating as much as he was, he is losing weight. Family is also not sure whether or not he is sleeping. History of cerebrovascular accident 657947793 Z86.73 PATIENT IS TO CONTINUE TO FOLLOW-UP WITH NEUROLOGY. Health Concerns Section Related Observation LastModified by Organization Detai ls LastModified Time None Recorded Concern Status LastModified by Organization Details LastModified Time None Recorded Payers Encounter Date Sequence Insurance Name Policy Number Policy Booth Covered Member ID Booth Member ID Guarantor Name 08/26/2024 1 CAMILO: EVIN MOSQUERA OF [facility] (MEDICARE REPLACEMENT [employer] O) [id number] Hugo Matthews [id number] Hugo Matthews Notes Date Note Type Note Provider Name and Address Organization Details Recorded Time 08/26/2024 text/html patient presents today to follow-up on hospital visit admission. Patient was admitted to [facility] [place] in [place] secondary to a history of CVA. Patient has a history of underlying dementia patient was discharged home on amlodipine and carvedilol. Both his and his son present at this visit. Patient has a follow-up appointment with Neurology scheduled for this coming Saturday. Family is concerned that is losing weight. He is also spending all day in bed. Alan Laguna MD [address] [place] [address], [phone], [facility] & [place] 08/26/2024 11:50:24
[2024-10-08 04:14] LABS: Basophils # 0.1 K/mm3 (0-0.2); Basophils % 0.6 % (0.1-2.0); Eosinophils # 0.1 Kmm3 (0.0-0.4); Eosinophils % 0.4 % (0.1-12.0); Hematocrit 43.9 % (42.0-52.0); Hemoglobin 15.7 g/dL (14.1-18.0); Immature Granulocytes # 0.07 10^3uL; Immature Granulocytes % 0.5 %; Lymphocytes # 1.5 K/mm3 (0.7-4.5); Lymphocytes % 11.5 % (10-50); Mean Corpuscular HGB Conc 35.8 g/dL (31.8-35.4); Mean Corpuscular Hemoglobin 31.7 pg (27.0-31.2); Mean Corpuscular Volume 88.7 fl (80-94); Mean Platelet Volume 9.8 fl (7.4-10.4); Monocytes # 1.1 K/mm3 (0.1-1.0); Monocytes % 8.1 % (1.7-9.3); Neutrophils # 10.5 K/mm3 (1.8-7.8); Neutrophils % 78.9 % (37.0-80.0); Nucleated Red Blood Cells # 0 10^3/uL; Nucleated Red Blood Cells % 0 %; Platelet Count 248 K/mm3 (142-424); Red Blood Count 4.95 M/mm3 (4.60-6.20); Red Cell Distribution Width 12.3 % (11.5-17.5); Red Cell Distribution Width-SD 39.9 fL; White Blood Count 13.3 K/mm3 (4.8-10.8)
[2024-10-08 04:20] LABS: Microscopic, Urine URINE MICROSCOPIC (MICROSCOPIC)
[2024-10-08 04:20] LABS: Chloride 97 mmol/L (98-107)
[2024-10-08 04:21] LABS: Albumin Level 4.1 g/dl (3.5-5.0); Potassium 3.9 mmoL/L (3.5-5.1); Sodium 136 mmol/L (136-145)
[2024-10-08 04:22] LABS: Appearance,Urine SL CLOUDY (Clear); Bilirubin,Urine Negative (Negative); Blood, Urine 2+ (Negative); Color,Urine YELLOW (Yellow); Glucose,Urine (UA) Negative (Negative); Ketones,Urine Negative (Negative); Leukocyte Esterase,Urine 3+ (Negative); Nitrate,Urine Negative (Negative); Protein,Urine TRACE (Negative)
[2024-10-08 04:23] LABS: Blood Urea Nitrogen 10 mg/dl (9-20); Creatinine Clearance Estimated 54 mL/min (50-200); Estimated Glomerular Filt Rate 92 ml/min (>60); GFR (African American) 112 ML/MIN (>60); INR 1.06 (0.9-1.1); Prothrombin Time 11.7 seconds (10.1-12.5)
[2024-10-08 04:24] LABS: Alanine Aminotransferase 31 U/L (12-78); Albumin/Globulin Ratio 1.6 (1.1-1.8); Alkaline Phosphatase 66 U/L (38-126); Anion Gap 9.9 mEq/L (5-15); Aspartate Amino Transferase 47 U/L (17-59); Bilirubin,Total 3.4 mg/dl (0.2-1.3); Calcium 8.9 mg/dl (8.4-10.2); Carbon Dioxide 33 mmol/L (22.0-30.0); Globulin 2.5 g/dL (1.3-3.2); Glucose 163 mg/dl (74-100); Total Protein,Serum 6.6 g/dl (6.3-8.2)
[2024-10-08 04:28] LABS: Bacteria,Urine 4+ /lpf; RBC,Urine TNTC #/hpf (0-3); WBC,Urine TNTC #/hpf (0-3)
[2024-10-08 04:35] LABS: Amphetamine/Metha Screen,Urine Negative ng/ml (<1000); Barbiturates Screen,Urine Negative ng/ml (<200)
[2024-10-08 04:36] LABS: Benzodiazepines Screen,Urine Negative ng/ml (<200)
[2024-10-08 04:37] LABS: Cannabinoid Screen,Urine Negative ng/ml (<50); Cocaine Screen,Urine Negative ng/ml (<300)
[2024-10-08 04:38] LABS: Methadone Screen,Urine Negative ng/ml (<300)
[2024-10-08 04:39] LABS: Opiate Screen,Urine Negative ng/ml (<300); Phencyclidine Screen,Urine Negative ng/ml (<25)
--- NOTE | 2024-10-08 04:44 | CT_ITS ---
PROCEDURE INFORMATION: Exam: CT Chest With Contrast; Diagnostic Exam date and time: 10/08/2024 5:04 AM Age: 84 years old Clinical indication: Injury or trauma; Additional info: Fall TECHNIQUE: Imaging protocol: Diagnostic computed tomography of the chest with contrast. Radiation optimization: All CT scans at this facility use at least one of these dose optimization techniques: automated exposure control; mA and/or kV adjustment per patient size (includes targeted exams where dose is matched to clinical indication); or iterative reconstruction. Contrast material: ISOVUE; Contrast volume: 75 ml; Contrast route: IV; COMPARISON: CR XR CHEST PORTABLE 10/08/2024 4:34 AM FINDINGS: Lungs: Mild centrilobular emphysematous changes are present. Mild dependent atelectasis bilaterally. Linear scar superior right lower lobe. Left granulomas. No focal consolidation. Pleural spaces: Unremarkable. No pneumothorax. No pleural effusion. Heart: Unremarkable. No cardiomegaly. No pericardial effusion. Coronary arteries: Coronary artery calcifications are present. Lymph nodes: Calcified mediastinal and AP window lymph nodes. Vasculature: Atherosclerotic changes of the aorta and branch vessels. Bones/joints: The osseous structures are demineralized. Degenerative changes of the shoulders and spine. Superior migration of the proximal humeri with respect to the distal acromion bilaterally suggesting chronic rotator cuff injury. Exaggerated kyphosis of the upper thoracic spine. No acute fracture. Soft tissues: Unremarkable. IMPRESSION: No acute findings. Nonemergent findings are detailed above.
--- NOTE | 2024-10-08 04:44 | CT_ITS ---
PROCEDURE INFORMATION: Exam: CT Abdomen And Pelvis With Contrast Exam date and time: 10/08/2024 5:04 AM Age: 84 years old Clinical indication: Injury or trauma; Additional info: Fall TECHNIQUE: Imaging protocol: Computed tomography of the abdomen and pelvis with contrast. Radiation optimization: All CT scans at this facility use at least one of these dose optimization techniques: automated exposure control; mA and/or kV adjustment per patient size (includes targeted exams where dose is matched to clinical indication); or iterative reconstruction. Contrast material: ISOVUE; Contrast volume: 75 ml; Contrast route: IV; COMPARISON: CT BONY PELVIS 10/08/2024 4:54 AM FINDINGS: Liver: Hepatic steatosis. Calcified granuloma in the right hepatic lobe. Gallbladder and biliary ducts: Cholelithiasis. There is no evidence of biliary ductal dilation. Pancreas: Normal. No ductal dilation. Spleen: The spleen demonstrates punctate calcifications, consistent with remote granulomatous organism exposure. Adrenal glands: Normal. No mass. Kidneys and ureters: The right kidney demonstrates mild renal scarring otherwise unremarkable. The left kidney demonstrates decreased enhancement and scarring involving the superior and lateral aspect. 10 mm simple cyst left kidney, no imaging follow-up recommended. Stomach and bowel: Unremarkable. No obstruction. No mucosal thickening. Appendix: No evidence of appendicitis. Intraperitoneal space: Peripherally calcified lesions in the bilateral pelvis which may be secondary to prior trauma or surgery. No free air. No significant fluid collection. Vasculature: There are numerous benign phleboliths in the pelvis. Atherosclerotic changes of the aorta and branch vessels. Extensive calcifications involving bilateral renal arteries with poor contrast opacification of the left renal artery. Lymph nodes: Unremarkable. No enlarged lymph nodes. Urinary bladder: There is mild bladder wall thickening consistent with chronic outflow obstruction, or cystitis. Reproductive: Enlarged prostate gland. Bones/joints: The osseous structures are demineralized. Degenerative changes of the spine. Scoliosis. Acute left femoral neck fracture. Nonspecific cystic lesions in the left femoral head which may reflect osteopenic changes. Soft tissues: Unremarkable. IMPRESSION: 1. Acute left femoral neck fracture. 2. Extensive calcifications involving bilateral renal arteries with poor contrast opacification of the left renal artery likely secondary to severe stenosis. Left renal scarring and areas of poor contrast enhancement. 3. Cholelithiasis. 4. Other nonemergent findings are detailed above. COMMENTS: Consistent with the [place] [employer]'s Incidental Findings Committee white paper (J Am Charles Radiol 2018): Any incidental renal lesion less than 1 cm or classified as too small to characterize, or any incidental cystic renal lesion characterized as simple-appearing, is likely benign. No follow-up imaging is recommended for these lesions per consensus recommendations based on imaging criteria.
--- NOTE | 2024-10-08 04:44 | CT_ITS ---
PROCEDURE INFORMATION: Exam: CT Pelvis Without Contrast, Skeleton Exam date and time: 10/08/2024 4:54 AM Age: 84 years old Clinical indication: Injury or trauma; Additional info: Fall hip FX TECHNIQUE: Imaging protocol: Computed tomography of the pelvis without contrast. Exam focused on the skeleton. Radiation optimization: All CT scans at this facility use at least one of these dose optimization techniques: automated exposure control; mA and/or kV adjustment per patient size (includes targeted exams where dose is matched to clinical indication); or iterative reconstruction. COMPARISON: CR XR PELVIS 1-2V 10/08/2024 and 07/24/2024 FINDINGS: Vasculature: Atherosclerotic changes of the aorta and branch vessels. Reproductive: Enlarged prostate gland. Urinary bladder: There is mild bladder wall thickening consistent with chronic outflow obstruction, or cystitis. Bones/joints: Scoliosis. The osseous structures are demineralized. Acute mildly displaced left femoral neck fracture again noted with varus angulation. No dislocation. Bone island in the left proximal femur. Sclerosis superior left endplate of L3. Degenerative changes of the spine. Soft tissues: 2.8 cm rim calcified lesion is again evident in the left pelvis. 6.3 x 2.3 cm fatty lesion with posterior peripheral calcifications in the right pelvis. Findings may be secondary to previous trauma or surgery and may reflect fat necrosis. IMPRESSION: 1. Acute mildly displaced left femoral neck fracture again noted with varus angulation. 2. There is mild bladder wall thickening consistent with chronic outflow obstruction, or cystitis.
[2024-10-08 04:45] LABS: Troponin I 0.02 ng/ml (0.00-0.034)
[2024-10-08] MEDS: LORazepam 2MG/ML VIAL 0.5 MG IV (04:49)
[2024-10-08] MEDS: 0.9 % SODIUM CHLORIDE 50 ML VIAL IV (05:20)
[2024-10-08] MEDS: SODIUM CHLORIDE 0.9% 10ML SYR (RAD ONLY) 10 ML IV (05:20)
[2024-10-08] MEDS: IOPAMIDOL-370 (76%);100ML BOTTLE 155 ML IV (05:20)
[2024-10-08] MEDS: CEFTRIAXONE SODIUM 2 GM in 0.9 % SODIUM CHLORIDE 100 ML IV (05:21)
[2024-10-08] MEDS: 0.9 % SODIUM CHLORIDE 1000ML 500 ML IV (05:22)
[2024-10-08] MEDS: ACETAMINOPHEN 1,000MG/100ML VIAL 1000 MG IV (05:22)
[2024-10-08] MEDS: MORPHINE 2MG/ML SYRINGE 2 MG IV (05:47)
--- NOTE | 2024-10-08 05:52 | PC.NURSE ---
Dr. Miguel speaking with Dr. Chen at this time.
--- NOTE | 2024-10-09 14:18 | PC.NURSE ---
pts urine culture results faxed to [facility] as the pt was transferred there.
== END 2024-10-08 06:34 | disposition short-term general hospital (02) ==
PROVIDERS: Emergency Provider Emergency Medicine; PCP Emergency Medicine
DX: S72.002A Fracture of unspecified part of neck of left femur, initial encounter for closed fracture (principal); N39.0 Urinary tract infection, site not specified; F03.90 Unspecified dementia, unspecified severity, without behavioral disturbance, psychotic disturbance, mood disturbance, and anxiety; W19.XXXA Unspecified fall, initial encounter
CPT/HCPCS: 70450; 70496; 70498; 71045; 71260; 72125; 72170; 72192; 74177; 80053; 80307; 81001; 84484; 85025; 85610; 87040; 87086; 87088; 87186; 93005; 96365; 96375; 99291; J0131; J0696; J2060; J2270; J7030; Q9967